=== PATIENT | female | born 2000 | race Caucasian/White ===

== ENCOUNTER 2023-01-08 11:54 | Emergency (ER) | payer OTHER, MEDICAID, SELFPAY ==
[2023-01-08 12:00] VITALS: BP 117/66; PULSE 71; RESP 16; TEMP 36.3; O2SAT 100; BMI 23.3
[2023-01-08 13:10] LABS: Bilirubin Urine NEGATIVE (NEGATIVE); Blood Urine TRACE-I (NEGATIVE); Clarity Urine CLEAR (CLEAR); Color Urine YELLOW (YELLOW); Glucose Urine UA NEGATIVE (NEGATIVE); Ketones Urine TRACE mg/dL (NEGATIVE); Leukocyte Esterase Urine TRACE (NEGATIVE); Nitrite Urine NEGATIVE (NEGATIVE); Protein Urine NEGATIVE (NEG/TRACE); Specific Gravity Urine >=1.030 (1.005-1.025); Urobilinogen Urine 0.2 EU/dL (0.2-1.0)
[2023-01-08 13:11] LABS: HCG Qualitative Urine* NEGATIVE (NEGATIVE)
[2023-01-08 13:12] LABS: Urine Microscopic Indicated YES
[2023-01-08 13:18] LABS: Bacteria Urine SMALL #/HPF (NONE SEEN); Cast Seen? NONE SEEN #/LPF (NONE SEEN); Crystals Seen? None Seen #/HPF (None Seen); Mucus Urine TRACE (NONE SEEN); Squamous Epithelial Cell Urine MANY #/LPF (NONE/RARE); Urine Culture Indicated YES
--- NOTE | 2023-01-08 13:40 | XR_ITS ---
The [address] [address] Patient Name: CHASE CLINTON MRN: [id number] date: 2000 Sex: F Assigned Patient Location: ER Current Patient Location: ER Accession/Order Number: [id number] Exam Date: 01/08/2023 13:30 Report Date: 01/08/2023 14:02 At the request of: ALLISON HART Procedure: XR abdomen min 2V EXAMINATION: XR abdomen min 2V HISTORY: Abdominal pain , nausea and vomiting COMPARISON: No relevant comparison available. FINDINGS: BOWEL GAS PATTERN: No abnormal dilation or deviation. A few small fluid levels within ascending colon; nonspecific. CALCIFICATIONS: None significant. OTHER: Negative. No abnormal gaseous collections. XR/XR abdomen min 2V IMPRESSION: 1. No obstruction or ileus. Mild enteritis cannot be excluded. Electronically authenticated by: KRUPA BURNETTE Date: 01/08/2023 14:02
[2023-01-08 14:25] LABS: Basophils Percent Auto 0.4 % (0.2-2.0); Eosinophils Percent Auto 0.4 % (0.9-7.0); Hematocrit 37.9 % (36.0-48.0); Hemoglobin 11.5 g/dL (12.0-16.0); Immature Granulocytes Abs Auto 0.01 10^3/uL (0.00-0.03); Immature Granulocytes Pct Auto 0.2 % (0.0-0.5); Lymphocytes Absolute Auto 1.4 10^3/uL (1.2-3.8); Lymphocytes Percent Auto 27.5 % (20.5-60.0); Mean Corpuscular HGB Conc 30.3 g/dL (29.9-35.2); Mean Corpuscular Hemoglobin 23.7 pg (26.7-34.0); Mean Corpuscular Volume 78.1 fL (81.0-99.0); Mean Platelet Volume 10.6 fL (9.5-13.5); Monocytes Absolute Auto 0.3 10^3/uL (0.3-0.8); Monocytes Percent Auto 5.9 % (1.7-12.0); Neutrophils Absolute Auto 3.4 10^3/uL (1.4-6.5); Neutrophils Percent Auto 65.6 % (43.0-75.0); Platelet Count 254 10^3/uL (150-450); Red Blood Count 4.85 10^6/uL (4.20-5.40); Red Cell Distribution Width 15.1 % (11.0-15.0); White Blood Count 5.2 10^3/uL (4.0-11.0)
[2023-01-08 14:27] LABS: Alanine Aminotransferase 18 U/L (14-59); Albumin Globulin Ratio 1.1; Albumin Level 3.9 g/dL (3.4-5.0); Alkaline Phosphatase 61 U/L (46-116); Anion Gap 12.8; Aspartate Amino Transferase 10 U/L (15-37); BUN Creatinine Ratio 14.3; Bilirubin Total 0.4 mg/dL (0.2-1.0); Calcium 8.9 mg/dL (8.5-10.1); Carbon Dioxide 27.8 mmol/L (21.0-32.0); Chloride 104 mmol/L (98-107); Estimated GFR (African America >60 (>=60); Estimated GFR (Non-African Ame >60 (>=60); Globulin 3.4 g/dL; Glucose 74 mg/dL (74-106); Potassium 3.6 mmol/L (3.5-5.1); Sodium 141 mmol/L (136-145); Total Protein 7.3 g/dL (6.4-8.2)
--- NOTE | 2023-01-08 14:58 | ED_ITS ---
HPI - Abdominal Pain General Chief Complaint: Abdominal Pain Stated Complaint: ABDOMINAL PAIN Time Seen by Provider: 01/08/23 13:18 Source: patient Mode of arrival: walk-in Limitations: no limitations History of Present Illness HPI narrative: Patient is a 22-year-old female presents to the emergency department for multiple complaints over the last 3 days. She states she has had diffuse abdominal pain after eating for the last 3 days associated with occasional vomiting. She vomited at work which prompted her to come to the ER today. She has had no fevers or upper respiratory symptoms. She states she has also had burning with urination and urinary frequency. She has not noted any vaginal discharge or hematuria. No flank or back pain. She takes control, no concern for . No diarrhea. Related Data Previous Rx's Medication Instructions Recorded cephalexin 500 mg capsule 500 mg PO Q8H 5 days #15 caps 01/08/23 hyoscyamine sulfate 0.125 mg 0.125 mg PO Q6H PRN abdominal pain 01/08/23 tablet (Levsin) #12 tabs ondansetron 4 mg disintegrating 4 mg PO Q6H PRN nausea and 01/08/23 tablet vomiting #12 tabs Allergies Allergy/AdvReac Type Severity Reaction Status Date / Time No Known Drug Allergies Allergy Verified 01/08/23 12:04 Review of Systems ROS Constitutional Denies: fever or chills Ears, nose, mouth, and throat Denies: throat pain Cardiovascular Denies: chest pain Respiratory Denies: shortness of breath Gastrointestinal Reports: abdominal pain, nausea and vomiting; Denies: diarrhea Genitourinary Reports: painful urination and urinary frequency Musculoskeletal Denies: back pain Integumentary/Breast Denies: rash Endocrine Denies: excessive urination PFSH PFS Social History Smoking status: Current every day smoker Exam Narrative Exam Narrative: Gen.: Awake, alert, in no distress Head: Normocephalic, atraumatic ENT: Moist mucous membranes Respiratory: No respiratory distress, lungs clear bilaterally Cardio: Regular rate and rhythm Gastrointestinal: Abdomen is soft, nondistended and nontender to palpation; no guarding or rebound Extremities: Moves extremities equally Psych: Normal mood and affect Neuro: No focal neuro deficit Skin: Warm, dry, intact Constitutional Vital Signs, click to edit/add: Last Vital Signs Temp 97.4 F L 01/08/23 12:00 Pulse 71 01/08/23 12:00 Resp 16 01/08/23 12:00 BP 117/66 01/08/23 12:00 Pulse Ox 100 01/08/23 12:00 O2 Del Method Room Air 01/08/23 12:00 Course Vital Signs Vital signs: Vital Signs Temperature 97.4 F L 01/08/23 12:00 Pulse Rate 71 01/08/23 12:00 Respiratory Rate 16 01/08/23 12:00 Blood Pressure 117/66 01/08/23 12:00 Pulse Oximetry 100 01/08/23 12:00 Oxygen Delivery Method Room Air 01/08/23 12:00 Temperature 97.4 F L 01/08/23 12:00 Pulse Rate 71 01/08/23 12:00 Respiratory Rate 16 01/08/23 12:00 Blood Pressure 117/66 01/08/23 12:00 Pulse Oximetry 100 01/08/23 12:00 Oxygen Delivery Method Room Air 01/08/23 12:00 MDM - Abdominal Pain MDM Narrative Medical decision making narrative: Lab studies and abdominal x-rays were obtained from the lobby, patient is found to have a mild UTI although contaminated. She will be treated with Keflex for 5 days. I asked the patient if she had any concern for STD exposure and she stated she was not sure so we will add a urine GC/chlamydia and contact with positive results for treatment. She will be given Levsin and Zofran for abdominal pain and nausea, her lab studies are unremarkable with no evidence of acute biliary or hepatic issues. Abdominal x-rays were unremarkable. Abdomen is soft and benign on recheck by attending physician and the patient is discharged home with Keflex, Levsin and Zofran, work note provided. Follow-up PCP and return to the ER if symptoms change or worsen. Medical Records Attestation: I reviewed the patient's medical records. Lab Data Attestation: I reviewed the patient's lab results. Labs: Lab Results 01/08/23 01/08/23 Range/Units 12:30 13:56 WBC 5.2 (4.0-11.0) 10^3/uL RBC 4.85 (4.20-5.40) 10^6/uL Hgb 11.5 L (12.0-16.0) g/dL Hct 37.9 (36.0-48.0) % MCV 78.1 L (81.0-99.0) fL MCH 23.7 L (26.7-34.0) pg MCHC 30.3 (29.9-35.2) g/dL RDW 15.1 H (11.0-15.0) % Plt Count 254 (150-450) 10^3/uL MPV 10.6 (9.5-13.5) fL Neut % (Auto) 65.6 (43.0-75.0) % Lymph % (Auto) 27.5 (20.5-60.0) % [place] % (Auto) 5.9 (1.7-12.0) % Eos % (Auto) 0.4 L (0.9-7.0) % Baso % (Auto) 0.4 (0.2-2.0) % Neut # (Auto) 3.4 (1.4-6.5) 10^3/uL Lymph # (Auto) 1.4 (1.2-3.8) 10^3/uL [place] # (Auto) 0.3 (0.3-0.8) 10^3/uL Eos # (Auto) 0.0 (0.0-0.7) 10^3/uL Baso # (Auto) 0.0 (0.0-0.1) 10^3/uL Abs Immat Gran (auto) 0.01 (0.00-0.03) 10^3/uL Imm/Tot Granulo (auto) 0.2 (0.0-0.5) % Sodium 141 (136-145) mmol/L Potassium 3.6 (3.5-5.1) mmol/L Chloride 104 (98-107) mmol/L Carbon Dioxide 27.8 (21.0-32.0) mmol/L Anion Gap 12.8 BUN 11.0 (7.0-18.0) mg/dL Creatinine 0.77 (0.55-1.02) mg/dL Est GFR ( Amer) >60 (>=60) Est GFR (Non-Af Amer) >60 (>=60) BUN/Creatinine Ratio 14.3 Glucose 74 (74-106) mg/dL Calcium 8.9 (8.5-10.1) mg/dL Total Bilirubin 0.4 (0.2-1.0) mg/dL AST 10 L (15-37) U/L ALT 18 (14-59) U/L Alkaline Phosphatase 61 (46-116) U/L Total Protein 7.3 (6.4-8.2) g/dL Albumin 3.9 (3.4-5.0) g/dL Globulin 3.4 g/dL Albumin/Globulin Ratio 1.1 Lipase 22.0 (16.0-77.0) U/L Urine Color Yellow (YELLOW) Urine Clarity Clear (CLEAR) Urine pH 6.0 (5.0-9.0) Ur Specific [place] >=1.030 A (1.005-1.025) Urine Protein Negative (NEG/TRACE) mg/dL Urine Glucose (UA) Negative (NEGATIVE) mg/dL Urine Ketones Trace A (NEGATIVE) mg/dL Urine Occult Blood Trace-i (NEGATIVE) Urine Nitrite Negative (NEGATIVE) Urine Bilirubin Negative (NEGATIVE) Urine Urobilinogen 0.2 (0.2-1.0) EU/dL Ur Leukocyte Esterase Trace A (NEGATIVE) Urine RBC 2-5 A (0-2) #/HPF Urine WBC 5-10 A (NONE SEEN) #/HPF Ur Squamous Epith Cells Many A (NONE/RARE) #/LPF Urine Crystals None seen (None Seen) #/HPF Urine Bacteria Small A (NONE SEEN) #/HPF Urine Casts None seen (NONE SEEN) #/LPF Urine Mucus Trace A (NONE SEEN) Ur Culture Indicated? Yes Urine HCG, Qual Negative (NEGATIVE) Imaging Data Abdominal x-ray: Attestation: I have reviewed the pertinent imaging results. Discharge Plan Discharge Chief Complaint: Abdominal Pain Clinical Impression: UTI (urinary tract infection), Nausea & vomiting, Abdominal pain Patient Disposition: Home, Self-Care Time of Disposition Decision: 14:55 Condition: Good Prescriptions / Home Meds: New hyoscyamine sulfate [Levsin] 0.125 mg tablet 0.125 mg PO Q6H PRN (Reason: abdominal pain) Qty: 12 0RF ondansetron 4 mg tablet,disintegrating 4 mg PO Q6H PRN (Reason: nausea and vomiting) Qty: 12 0RF cephalexin 500 mg capsule 500 mg PO Q8H 5 Days Qty: 15 0RF Instructions: Urinary Tract Infection in Women (ED), Acute Nausea and Vomiting (ED), Acute Abdominal Pain (ED) Stand Alone Forms: Portal Instructions Referrals: SHAWN HAYWOOD [Primary Care Provider] - 1 week
[2023-01-08] MEDS: ONDANSETRON 4 MG RAPDIS TABLET SL (15:02)
[2023-01-08] MEDS: HYOSCYAMINE SULFATE 0.125 MG TAB.SUBL SL (15:02)
[2023-01-10 03:08] LABS: Neisseria gonorrhoeae, NAA Negative (Negative)
== END 2023-01-08 15:04 | disposition home or self-care (01) ==
PROVIDERS: Physician Assistant; Emergency Provider Emergency Medicine; PCP Family Medicine
DX: N39.0 Urinary tract infection, site not specified (principal); R11.2 Nausea with vomiting, unspecified; R10.9 Unspecified abdominal pain; F17.210 Nicotine dependence, cigarettes, uncomplicated
CPT/HCPCS: 36415; 74019; 80053; 81001; 83690; 84703; 85025; 87086; 87150; 87186; 87491; 87591; 99285

== ENCOUNTER 2023-08-09 12:53 | Emergency (ER) | payer MEDICAID, SELFPAY ==
[2023-08-09 12:58] VITALS: BP 128/83; PULSE 88; TEMP 37; O2SAT 100; BMI 27.5
[2023-08-09 13:41] LABS: Bilirubin Urine NEGATIVE (NEGATIVE); Blood Urine NEGATIVE (NEGATIVE); Clarity Urine CLEAR (CLEAR); Color Urine YELLOW (YELLOW); Glucose Urine UA NEGATIVE (NEGATIVE); Ketones Urine NEGATIVE (NEGATIVE); Leukocyte Esterase Urine NEGATIVE (NEGATIVE); Nitrite Urine NEGATIVE (NEGATIVE); Protein Urine TRACE mg/dL (NEG/TRACE); Urobilinogen Urine 0.2 EU/dL (0.2-1.0); pH Urine >=9.0 (5.0-9.0)
[2023-08-09 13:47] LABS: Urine Microscopic Indicated NO
--- NOTE | 2023-08-09 14:03 | ED.ABDPAIN1 ---
HPI - Abdominal Pain General Chief Complaint: Abdominal Pain Stated Complaint: ABDOMINAL PAIN Time Seen by Provider: 08/09/23 13:44 Source: patient History of Present Illness HPI narrative: Patient is a 23-year-old female who presents to the emergency department for evaluation of pelvic pain that began today associated with thick vaginal discharge that has been present for several weeks. She was seen at urgent care 5 days ago, she had a pelvic exam with cultures performed and she states she was told they were negative. She is concerned for STD and she is concerned for . She has continued to have unprotected sex throughout the week despite her thick vaginal discharge and discomfort. She was given Diflucan that she took 2 doses of 3 days apart. She has also been using MetroGel vaginally and states she just finished her last dose of that and she is still having symptoms. She has had no fevers. She did have an episode of emesis this morning but has not had any significant emesis or diarrhea. Related Data Previous Rx's ?Medication ?Instructions ?Recorded doxycycline hyclate 100 mg tablet 100 mg PO BID 7 days #14 tabs 08/09/23 fluconazole 100 mg tablet 100 mg PO DAILY #5 tabs 08/09/23 (Diflucan) metronidazole 500 mg tablet 500 mg PO Q12H 7 days #14 tabs 08/09/23 ondansetron 4 mg disintegrating 4 mg PO Q6H PRN nausea and 08/09/23 tablet vomiting #12 tabs Allergies Allergy/AdvReac Type Severity Reaction Status Date / Time No Known Drug Allergies Allergy Verified 08/09/23 13:03 Review of Systems ROS Constitutional Denies: fever or chills Ears, nose, mouth, and throat Denies: throat pain or nasal congestion Cardiovascular Denies: chest pain Respiratory Denies: shortness of breath or cough Gastrointestinal Reports: abdominal pain, nausea and vomiting; Denies: diarrhea Genitourinary Denies: painful urination Musculoskeletal Denies: back pain Integumentary/Breast Denies: rash Neurological Denies: headache Hematologic/Lymphatic Denies: easy bruising or easy bleeding PFSH PFSH Social History Smoking status: Current every day smoker Exam Narrative Exam Narrative: Gen.: Awake, alert, in no distress Head: Normocephalic, atraumatic ENT: Moist mucous membranes Respiratory: No respiratory distress Gastrointestinal: Mild suprapubic pain, no pain out of proportion on exam. Extremities: Moves extremities equally Psych: Normal mood and affect Neuro: No focal neuro deficit Skin: Warm, dry, intact Constitutional Vital Signs, click to edit/add: Last Vital Signs Temp 98.6 F 08/09/23 12:58 Pulse 78 08/09/23 14:57 Resp 16 08/09/23 14:57 BP 104/72 08/09/23 14:57 Pulse Ox 100 08/09/23 14:57 O2 Del Method Room Air 08/09/23 14:57 Course Vital Signs Vital signs: Vital Signs Temperature 98.6 F 08/09/23 12:58 Pulse Rate 88 08/09/23 12:58 Respiratory Rate 16 08/09/23 12:58 Blood Pressure 128/83 08/09/23 12:58 Pulse Oximetry 100 08/09/23 12:58 Oxygen Delivery Method Room Air 08/09/23 12:58 Temperature 98.6 F 08/09/23 12:58 Pulse Rate 78 08/09/23 14:57 Respiratory Rate 16 08/09/23 14:57 Blood Pressure 104/72 08/09/23 14:57 Pulse Oximetry 100 08/09/23 14:57 Oxygen Delivery Method Room Air 08/09/23 14:57 MDM - Abdominal Pain MDM Narrative Medical decision making narrative: Patient has already had a pelvic exam this week with pelvic cultures performed that she states were negative per urgent care. She is still concerned for STDs that she continues to have thick vaginal discharge. She was strongly encouraged not to continue to have unprotected sex while she has been treated for cervicitis. test and urine specimen are negative, lab studies are unremarkable and pelvic ultrasound with no evidence of acute abnormalities. Patient treated for cervicitis with Rocephin in the ER, doxycycline, Flagyl and Diflucan for home. 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 Return to the ER if symptoms change or worsen. SUPERVISED APC VISIT, PHYSICIAN ATTESTATION: Based on the medical record the care appears appropriate. ? Medical Records Attestation: I reviewed the patient's medical records. Lab Data Attestation: I reviewed the patient's lab results. Labs: Lab Results 06/28/24 06/28/24 Range/Units 13:16 14:10 WBC 8.6 (4.0-11.0) 10^3/uL RBC 4.75 (4.20-5.40) 10^6/uL Hgb 10.3 L (12.0-16.0) g/dL Hct 35.2 L (36.0-48.0) % MCV 74.1 L (81.0-99.0) fL MCH 21.7 L (26.7-34.0) pg MCHC 29.3 L (29.9-35.2) g/dL RDW 16.2 H (11.0-15.0) % Plt Count 310 (150-450) 10^3/uL MPV 9.3 L (9.5-13.5) fL Neut % (Auto) 66.5 (43.0-75.0) % Lymph % (Auto) 27.3 (20.5-60.0) % [place] % (Auto) 4.9 (1.7-12.0) % Eos % (Auto) 0.4 L (0.9-7.0) % Baso % (Auto) 0.7 (0.2-2.0) % Neut # (Auto) 5.7 (1.4-6.5) 10^3/uL Lymph # (Auto) 2.3 (1.2-3.8) 10^3/uL [place] # (Auto) 0.4 (0.3-0.8) 10^3/uL Eos # (Auto) 0.0 (0.0-0.7) 10^3/uL Baso # (Auto) 0.1 (0.0-0.1) 10^3/uL Abs Immat Gran (auto) 0.02 (0.00-0.03) 10^3/uL Imm/Tot Granulo (auto) 0.2 (0.0-0.5) % Sodium 140 (136-145) mmol/L Potassium 4.2 (3.5-5.1) mmol/L Chloride 103 (98-107) mmol/L Carbon Dioxide 28.0 (21.0-32.0) mmol/L Anion Gap 13.2 BUN 10.0 (7.0-18.0) mg/dL Creatinine 0.92 (0.55-1.02) mg/dL Est GFR ( Amer) >60 (>=60) Est GFR (Non-Af Amer) >60 (>=60) BUN/Creatinine Ratio 10.9 Glucose 91 (74-106) mg/dL Calcium 8.5 (8.5-10.1) mg/dL Urine Color Yellow (YELLOW) Urine Clarity Clear (CLEAR) Urine pH >=9.0 A (5.0-9.0) Ur Specific [place] 1.010 (1.005-1.025) Urine Protein Trace (NEG/TRACE) mg/dL Urine Glucose (UA) Negative (NEGATIVE) mg/dL Urine Ketones Negative (NEGATIVE) mg/dL Urine Occult Blood Negative (NEGATIVE) Urine Nitrite Negative (NEGATIVE) Urine Bilirubin Negative (NEGATIVE) Urine Urobilinogen 0.2 (0.2-1.0) EU/dL Ur Leukocyte Esterase Negative (NEGATIVE) Urine RBC Cancelled Urine WBC Cancelled Ur Squamous Epith Cells Cancelled Ur Transition Epith Cell Cancelled Ur Renal Epithelial Cell Cancelled Urine Crystals Cancelled Calcium Carbonate Cryst Cancelled Calcium Phosphate Cryst Cancelled Calcium Oxalate Crystal Cancelled Cystine Crystals Cancelled Uric Acid Crystals Cancelled Triple Phos Crystals Cancelled Tyrosine Crystals Cancelled Amorphous Sediment Cancelled Urine Bacteria Cancelled Urine Casts Cancelled Fatty Casts Cancelled Hyaline Casts Cancelled Fine Granular Casts Cancelled Coarse Granular Casts Cancelled Waxy Casts Cancelled RBC Casts Cancelled WBC Casts Cancelled Urine Starch Cancelled Urine Mucus Cancelled Urine Trichomonas Cancelled Urine Yeast Cancelled Urine Sperm Cancelled Ur Oval Fat Bodies Cancelled Ur Culture Indicated? Cancelled Urine HCG, Qual Negative (NEGATIVE) Imaging Data US - abdomen: Attestation: I have reviewed the pertinent imaging results. Radiologist's impression: ITS Impressions Transvaginal US 08/09/23 14:26 IMPRESSION: No abnormality identified Electronically authenticated by: TAMMY LOCKWOOD Date: 08/09/2023 15:31 Discharge Plan Discharge Stand Alone Forms: Portal Instructions Chief Complaint: Abdominal Pain Clinical Impression: Cervicitis, Abdominal pain Patient Disposition: Home, Self-Care Time of Disposition Decision: 15:47 Condition: Good Mode of Transportation: Private Vehicle Prescriptions / Home Meds: New metronidazole 500 mg tablet 500 mg PO Q12H 7 Days Qty: 14 0RF ondansetron 4 mg tablet,disintegrating 4 mg PO Q6H PRN (Reason: nausea and vomiting) Qty: 12 0RF doxycycline hyclate 100 mg tablet 100 mg PO BID 7 Days Qty: 14 0RF fluconazole [Diflucan] 100 mg tablet 100 mg PO DAILY Qty: 5 0RF Print Language: [place] Instructions: Cervicitis (ED) Additional Instructions: Please follow up with your bow repairer custom Referrals: SHAWN HAYWOOD [Primary Care Provider] - 1 week Discharge Date/Time: 08/09/23 16:05
[2023-08-09 14:11] LABS: HCG Qualitative Urine* NEGATIVE (NEGATIVE); Internal Control Within Normal Limits
[2023-08-09 14:19] LABS: Basophils Absolute Auto 0.1 10^3/uL (0.0-0.1); Basophils Percent Auto 0.7 % (0.2-2.0); Eosinophils Percent Auto 0.4 % (0.9-7.0); Hematocrit 35.2 % (36.0-48.0); Hemoglobin 10.3 g/dL (12.0-16.0); Immature Granulocytes Abs Auto 0.02 10^3/uL (0.00-0.03); Immature Granulocytes Pct Auto 0.2 % (0.0-0.5); Lymphocytes Absolute Auto 2.3 10^3/uL (1.2-3.8); Lymphocytes Percent Auto 27.3 % (20.5-60.0); Mean Corpuscular HGB Conc 29.3 g/dL (29.9-35.2); Mean Corpuscular Hemoglobin 21.7 pg (26.7-34.0); Mean Corpuscular Volume 74.1 fL (81.0-99.0); Mean Platelet Volume 9.3 fL (9.5-13.5); Monocytes Absolute Auto 0.4 10^3/uL (0.3-0.8); Monocytes Percent Auto 4.9 % (1.7-12.0); Neutrophils Absolute Auto 5.7 10^3/uL (1.4-6.5); Neutrophils Percent Auto 66.5 % (43.0-75.0); Platelet Count 310 10^3/uL (150-450); Red Blood Count 4.75 10^6/uL (4.20-5.40); Red Cell Distribution Width 16.2 % (11.0-15.0); White Blood Count 8.6 10^3/uL (4.0-11.0)
[2023-08-09 14:25] LABS: Anion Gap 13.2; BUN Creatinine Ratio 10.9; Calcium 8.5 mg/dL (8.5-10.1); Chloride 103 mmol/L (98-107); Estimated GFR (African America >60 (>=60); Estimated GFR (Non-African Ame >60 (>=60); Glucose 91 mg/dL (74-106); Potassium 4.2 mmol/L (3.5-5.1); Sodium 140 mmol/L (136-145)
--- NOTE | 2023-08-09 14:26 | US_ITS ---
The [address] [address] Patient Name: CHASE CLINTON MRN: [id number] date: 2000 Sex: F Assigned Patient Location: ER Current Patient Location: ER Accession/Order Number: [id number] Exam Date: 08/09/2023 15:00 Report Date: 08/09/2023 15:31 At the request of: ALLISON HART Procedure: US pelvis transvaginal EXAMINATION: US pelvis transvaginal HISTORY: Suprapubic pain, discharge COMPARISON: No relevant comparison available. FINDINGS: Findings the uterus is normal in size, contour and myometrial echotexture measuring 10.0 x 5.2 x 4.1 cm. Anteverted. The endometrium measures 11.7 mm, within normal limits for age The right ovary is normal measuring 2.8 x 2.1 x 1.9 cm. Normal color Doppler flow The left ovary is normal measuring 2.4 x 2.1 x 1.6 cm. Normal color Doppler flow No free fluid US/US pelvis transvaginal IMPRESSION: No abnormality identified Electronically authenticated by: TAMMY LOCKWOOD Date: 08/09/2023 15:31
[2023-08-09] MEDS: KETOROLAC TROMETHAMINE 10 MG TABLET PO (14:43)
[2023-08-09] MEDS: ONDANSETRON 4 MG RAPDIS TABLET SL (14:43)
[2023-08-09] MEDS: WATER FOR INJECTION STERILE IM (14:50)
[2023-08-09] MEDS: CEFTRIAXONE 1000 MG IM (14:50)
[2023-08-09 14:57] VITALS: BP 104/72; PULSE 78; O2SAT 100
== END 2023-08-09 16:05 | disposition home or self-care (01) ==
PROVIDERS: Physician Assistant; Emergency Provider Emergency Medicine; PCP Family Medicine
DX: R10.9 Unspecified abdominal pain (principal); N72 Inflammatory disease of cervix uteri; F17.200 Nicotine dependence, unspecified, uncomplicated
CPT/HCPCS: 36415; 76830; 80048; 81001; 81003; 84703; 85025; 99284; J0696; Q0162

== ENCOUNTER 2024-01-16 19:02 | Emergency (ER) | payer MEDICAID, SELFPAY ==
[2024-01-16 19:13] VITALS: BP 102/50; PULSE 85; TEMP 36.6; O2SAT 99
--- OUTSIDE RECORDS SUMMARY | 2024-01-16 19:19 | XMS_ITS | CCD ---
Author Organization [facility] Care Team Providers [place] Bail[place] Name Role Phone Shamir Keenan Unavailable DO Michael Haywood Primary Care Provider [phone] DO Uriel Kim Attending Provider DO Agatha Stafford Attending Provider NO FAMILY, PHYSICIAN Primary Care Provider Unava MD Nany Kessler Attending Provider [phone] MD Nany Morton Admit Provider [phone] Stacy Hardy Unavailable STEW, DR ZANDRA Jeffrey Attending Unavailabl e DANIELCHDIONICIO ., MARCIA COOPER Consulting Unavailabl e DENVER, DR ESCOBAR Primary Care Unavailable STEW, DR ZANDRA Jeffrey Admitting Unavailabl e DENVER, DR ESCOBAR Primary Care Unavailable DENVER, DR ESCOBAR Admitting Unavailable DENVER, DR ESCOBAR Attending Unavailable DENVER, DR ESCOBAR Consulting Unavailable JULIUSEBER, DR KRUPA Agustin Consulting Unavailable KELSEY ., DR FRENCH Consulting Unavailable KELSEY ., DR FRENCH Admitting Unavailable HOUSE, DR ESCOBAR Primary Care Unavailable KELSEY ., DR FRENCH Attending Unavailable KARASIK ., DR ZAMUDIO Consulting Unavailabl e [facility] [place] NAVA Admitting Unavailable HOUSE, DR ESCOBAR Primary Care Unavailable [facility] [place] DR NAVA Attending Unavailable YOBANY, MICHAEL Rendon Primary Care Physician AGATHA STAFFORD Attending Unavailable AGATHA STAFFORD Attending Unavailable AGATHA STAFFORD Attending Unavailable AGATHA STAFFORD Attending Unavailable RE Jaramillo Attending Provider [phone] Maria De Jesus Jaramillo Attending Unavailable Maria De Jesus Jaramillo Admitting Unavailable DO Agatha Stafford. Referring DO Agatha Rebollar Attending DO Agatha Rebollar Admitting UnavailDO MICHAEL Sanchez Attending Unavailable MICHAEL HAYWOOD Primary Care Unavailable MICHAEL HAYWOOD Primary Care Unavailable Claudia MAYO, Jimmy Jeffrey Attending Unavailable MICHAEL HAYWOOD Primary Care Unavailable Jimmy Taylor MD Attending Unavailable MICHAEL HAYWOOD Primary Care Unavailable DO MICHAEL HAYWOOD Attending Unavailable Michael Haywood MD Primary Care Provider Unavailable Unavailable Unavailable Allergies Allergy Classification Reported Allergen(s) Allergy Type Date of Onset Reaction(s) Facility (3 sources) Sunscreens Drug allergy Unknown [employer] Other Medications Current Medications Medication Drug Class(es) Dates Sig (Normalized) Sig (Original) cariprazine 1.5 mg oral capsule (1 source) Atypical Antipsychotic Start: 04-04-2023 take 1 capsule by mouth once daily Vraylar 1.5 mg oral capsule 1.5 mg = 1 cap(s), Oral, Daily, Refills(s) 0, Depression Start Date: 04/04/23 Status: Ordered cephalexin 500 mg oral capsule (8 sources) Cephalosporin Antibacterial Start: 07-27-2023 take 500 mg by mouth three times daily Cephalexin Active 500 MG PO Three times daily 31 08July 27, 2023 12:00am Start: 03-28-2022 take 1 capsule by mo uth every six hours Cephalexin 500 MG 1 capsule Orally Four times a day for 10 day(s) Mar, Active Start: 09-15-2021 End: 09-21-2021 take 500 mg by mouth every six hours Cephalexin Discontinued 500 MG PO Q6H 28 September 15, 2021 12:00am September 21, 2021 11:37am Ethinyl Estradiol / norgestimate (3 sources) Progestin, Estrogen Start: 04-04-2023 take 1 tablet by mouth once daily ethinyl estradiol-norgestimate 35 mcg-0.25 mg Tab 1 tab(s), Oral, Daily, Refill(s) 0, control/menstrual regulation Start Date: 04/04/23 Status: Ordered Start: 02-14-2023 End: 01-15-2024 take 1 tablet by mouth in the morning norgestimate-ethinyl estradiol (Sprintec 28) 0.25-35 MG-MCG tablet Indications: Irregular periods , Surveillance for control, oral contraceptives Take 1 tablet by mouth in the morning. 28 tablet 02/14/2023 01/15/2024 Discontinued fluticasone propionate 0.05 mg/actuat metered dose nasal spray (1 source) Corticosteroid Start: 01-14-2021 take 1 spray(s) nasal route twice daily Fluticasone Propionate 50 MCG/ACT 1 spray in each nostril Nasally Twice a day for 14 days Jan, Active Completed/Discontinued Medications Medication Drug Class(es) Dates Sig (Normalized) Sig (Original) docusate sodium 100 mg oral capsule (12 sources) Start: 09-24-2021 End: 07-27-2023 take 100 mg by mouth at bedtime Docusate Sodium Discontinued 100 MG PO Bedtime September 24, 2021 12:00am July 27, 2023 12:29pm Start: 09-24-2021 take 100 mg by mouth at bedtim e Docusate Sodium Active 100 MG PO Bedtime September 24, 2021 12:00am Start: 09-24-2021 take 100 mg by mouth at bedtim e Docusate Sodium Active 100 MG PO Bedtime September 24, 2021 12:00am Start: 09-24-2021 take 100 mg by mouth at bedtim e Docusate Sodium Active 100 MG PO Bedtime September 24, 2021 12:00am Start: 06-03-2020 End: 04-15-2021 take 1 capsule by mouth once daily Docusate Sodium (Colace Clear) 50 mg capsule Discontinued 50 MG PO Daily June 03, 2020 12:00am April 15, 2021 11:25am ferrous sulfate 324 mg delayed release oral tablet (18 sources) Start: 09-24-2021 End: 07-27-2023 take 324 mg by mouth twice daily Ferrous Sulfate Discontinued 324 MG PO Twice daily September 24, 2021 12:00am July 27, 2023 12:29pm Start: 09-24-2021 take 324 mg by mouth twice daily Ferrous Sulfate Active 324 MG PO Twice daily September 24, 2021 12:00am Start: 09-24-2021 take 324 mg by mouth twice daily Ferrous Sulfate Active 324 MG PO Twice daily 60 September 24, 2021 12:00am Start: 09-24-2021 take 324 mg by mouth twice daily Ferrous Sulfate Active 324 MG PO Twice daily 60 September 24, 2021 12:00am Start: 07-18-2021 End: 07-27-2023 take 325 mg by mouth twice daily Ferrous Sulfate Discontinued 325 MG PO Twice daily July 18, 2021 12:00am July 27, 2023 12:29pm Start: 05-16-2020 End: 04-15-2021 take 1 tablet by mouth once daily Ferrous Sulfate (Iron (Ferrous Sulfate)) 325 mg (65 mg iron) Tablet Discontinued 353 MG PO Daily May 16, 2020 12:00am April 15, 2021 11:25am ibuprofen 600 mg oral tablet (20 sources) Nonsteroidal Anti-inflammatory Drug Start: 09-24-2021 End: 07-27-2023 take 600 mg by mouth every six hours Ibuprofen Discontinued 600 MG PO Q6H 60 September 24, 2021 12:00am July 27, 2023 12:29pm Start: 09-24-2021 take 600 mg by mouth every six hours Ibuprofen Active 600 MG PO Q6H 60 September 24, 2021 12:00am Start: 09-24-2021 take 600 mg by mouth every six hours Ibuprofen Active 600 MG PO Q6H 60 September 24, 2021 12:00am Start: 09-24-2021 take 600 mg by mouth every six hours Ibuprofen Active 600 MG PO Q6H 60 September 24, 2021 12:00am Start: 06-03-2020 End: 04-15-2021 take 800 mg by mouth three to four times daily Ibuprofen Discontinued 800 MG PO 3 to 4 times per day June 03, 2020 12:00am April 15, 2021 11:25am Start: 12-20-2018 End: 05-16-2020 take 600 mg by mouth every six hours Ibuprofen Discontinued 600 MG PO Q6H December 20, 2018 1:00am May 16, 2020 10:14pm ondansetron 4 mg oral tablet (6 sources) Serotonin-3 Receptor Antagonist Start: 05-16-2020 End: 07-27-2023 take 1 tablet by mouth every six hours Ondansetron Hcl (Zofran) 4 mg Tablet Discontinued 4 MG PO Q6H May 16, 2020 12:00am July 27, 2023 12:29pm predniSONE 20 mg oral tablet (2 sources) Start: 11-11-2021 take 1 tablet by mouth every twelve hours predniSONE 20 MG 1 tablet Orally 2 times a day for 5 day(s) Nov, Not-Taking Kqyamqrk-Xux-Rt-Fa (6 sources) Start: 05-16-2020 End: 07-27-2023 take 1 tablet by mouth once daily Kxttatrs-Vbn-Yx-Fa Discontinued 1 TAB PO Daily May 16, 2020 12:00am July 27, 2023 12:28pm Start: 05-16-2020 take 1 tablet by marvin th once daily Yzvgmrac-Rwt-Xr-Fa Active 1 TAB PO Daily May 16, 2020 12:00am triamcinolone acetonide 40 mg/ml injectable suspension (2 sources) Corticosteroid Start: 11-11-2021 Kenalog-40 Nov, 40 mg Problems Active Problems Problem Classification Problem Date Documented Da te Episodic/Chronic Abdominal pain (10 sources) Abdominal pain; Translations: [Unspecified abdominal pain] Onset: 08-23-2021 04-15-2021 Episodic Immunizations and screening for infectious disease (4 sources) Contact with and (suspected) exposure to other viral communicable diseases; Translations: [Contact with and (suspected) exposure to other viral communicable diseases] Onset: 01-14-2021 Resolved: 01-14-2021 Episodic Menstrual disorders (5 sources) Irregular periods; Translations: [Irregular menstruation, unspecified] Onset: 04-03-2023 Chronic Mood disorders (1 source) Bipolar disorder 04-04-2023 Chronic Other female genital disorders (1 source) Postcoital bleeding; Translations: [Postcoital and contact bleeding] Onset: 04-03-2023 Chronic Other female genital disorders (10 sources) History of past delivery; Translations: [Status post vaginal delivery] 09-24-2021 Episodic Other female genital disorders (1 source) Disorder of female genital organs; Translations: [Other specified conditions associated with female genital organs and menstrual cycle] Onset: 04-03-2023 Episodic Other and delivery including normal (6 sources) ; Translations: [Encounter for supervision of normal , unspecified, unspecified trimester] 04-15-2021 Episodic Other screening for suspected conditions (not mental disorders or infectious disease) (2 sources) Cancer cervix screening status; Translations: [Encounter for screening for malignant neoplasm of cervix] 01-15-2024 Episodic Other skin disorders (1 source) Folliculitis; Translations: [Follicular disorder, unspecified] 07-27-2023 Episodic Other skin disorders (1 source) Follicular disorder, unspecified; Translations: [Other specified diseases of hair and hair follicles] 07-27-2023 Episodic Other upper respiratory infections (1 source) Acute pharyngitis, unspecified Episodic Residual codes; unclassified (1 source) High risk heterosexual behavior; Translations: [High-risk sexual behavior] 07-27-2023 Episodic Screening and history of mental health and substance abuse codes (1 source) Personal history of nicotine dependence; Translations: [PERSONAL HISTORY OF NICOTINE DEPEND] Onset: 03-29-2022 Episodic Skin and subcutaneous tissue infections (5 sources) Cellulitis of left lower limb; Translations: [CELLULITIS OF LEFT LOWER LIMB] Onset: 03-28-2022 Episodic Unclassified (3 sources) LOW BACK PAIN, UNSPECIFIED; Translations: [LOW BACK PAIN, UNSPECIFIED] Onset: 05-09-2022 Past or Other Problems Problem Classification Problem Date Documented Date Episodic/Chronic Nausea and vomiting (1 source) Nausea; Translations: [NAUSEA] Onset: 08-23-2021 Episodic Other complications of (4 sources) Other specified related conditions, third trimester; Translations: [OTH SPEC PREG RELATED COND 3RD TRI] Onset: 08-19-2021 Episodic Other complications of (4 sources) Other specified related conditions, second trimester; Translations: [OTH SPEC PREG RELATED COND 2ND TRI] Onset: 2021 Episodic Other female genital disorders (1 source) Other specified noninflammatory disorders of vagina; Translations: [OTH SPEC NONINFLAMMATORY D/O VAGINA] Onset: 06-15-2021 Episodic Residual codes; unclassified (1 source) 33 weeks gestation of ; Translations: [33 WEEKS GESTATION OF ] Onset: 08-23-2021 Episodic Residual codes; unclassified (1 source) 23 weeks gestation of ; Translations: [23 WEEKS GESTATION OF ] Onset: 06-15-2021 Episodic Spondylosis; intervertebral disc disorders; other back problems (1 source) Dorsalgia, unspecified; Translations: [DORSALGIA UNSPECIFIED] Onset: 08-23-2021 Episodic Unclassified (1 source) LOW BACK PAIN, UNSPECIFIED; Translations: [LOW BACK PAIN, UNSPECIFIED] Onset: 05-07-2022 Viral infection (1 source) Viral infection, unspecified Onset: 01-14-2021 Resolved: 01-14-2021 Episodic Results Test Name Value Interpretation Reference Range Facility Consultation/Specialist Note on 08-16-2023 Consultation/Speciali st Note [id number] [facility] Outside Records [id number] [facility] [id number] 19[facility] 07-30-2023 Outside Records [id number] [facility] Vaginitis Plus (VG+)on 07-26 Atopobium Vaginae Low - 0 Normal . [facility] Comment on above: Order Comment: SOURC E OF SPECIMEN: ORANGE APTIMA Result Comment: This test was developed and its performance characteristics determined by [facility]. It has not been cleared or approved by the Food and Drug Administration. Performed By: #### V AGINITIS+ #### [facility] , BVAB2 Low - 0 Normal . The [facility] Comment on above: Order Comment: SOURC E OF SPECIMEN: ORANGE APTIMA Result Comment: This test was developed and its performance characteristics determined by [facility]. It has not been cleared or approved by the Food and Drug Administration. Performed By: #### V AGINITIS+ #### [facility] , Ashley Albicans, KADE Negative Normal Negative [facility] Comment on above: Order Comment: SOURC E OF SPECIMEN: ORANGE APTIMA Result Comment: This test was developed and its performance characteristics determined by [facility]. It has not been cleared or approved by the Food and Drug Administration. Performed By: #### V AGINITIS+ #### [facility] , Ashley Glabrata, KADE Negative Normal Negative [facility] Comment on above: Order Comment: SOURC E OF SPECIMEN: ORANGE APTIMA Result Comment: This test was developed and its performance characteristics determined by [facility]. It has not been cleared or approved by the Food and Drug Administration. PERFORMED BY: [facility] [address] [place] [address] PATHOLOGIST APPEALS WRITER ARGENTINA SANCHES M.D. Performed By: #### V AGINITIS+ #### [facility] , Chlamydia Trachomotis, KADE Negative Normal Negative [facility] Comment on above: Order Comment: SOURC E OF SPECIMEN: ORANGE APTIMA Performed By: #### V AGINITIS+ #### [facility] , Megasphaera Low - 0 Normal . [facility] Comment on above: Order Comment: SOURC E OF SPECIMEN: ORANGE APTIMA Result Comment: This test was developed and its performance characteristics determined by [facility]. It has not been cleared or approved by the Food and Drug Administration. Calculate total score by adding the 3 individual bacterial vaginosis (BV) marker scores together. Total score is interpreted as follows: Total score 0-1: Indicates the absence of BV. Total score 2: Indeterminate for BV. Additional clinical data should be evaluated to establish a diagnosis. Total score 3-6: Indicates the presence of BV. Performed By: #### V AGINITIS+ #### [facility] , Neisseria Gonorrhoeae, KADE Negative Normal Negative [facility] Comment on above: Order Comment: SOURC E OF SPECIMEN: ORANGE APTIMA Result Comment: Perf ormed at: =G - [facility] [address] [id number] [employer] Operator: Vera Walsh MD, Phone: [phone] Performed By: #### V AGINITIS+ #### [facility] , Tric Vag KADE Negative Normal Negative The [facility] Comment on above: Order Comment: SOURC E OF SPECIMEN: ORANGE APTIMA Performed By: #### V AGINITIS+ #### [facility] , Miscellaneouson 04-10-2023 Miscellaneous [id number] #1.00OTGTIFF [facility] IntraOperative Documentson 0 04-09-2023 IntraOperative Documents [id number] #1.00TIFF [facility] Postoperative Documentson Postoperative Documents [id number] #1.00TIFF [facility] Lab - Other Pathology Report on 04-08-2023 Lab - Other Pathology Report [id number] #1.00[facility] [Electronically Signed on: 04/08/2023 11:14 EST] MICHAEL HAYWOOD DO [Electronically Signed on: 04/09/2023 14:40 EST] Vianca Kebede [Verified on: 04/08/2023 11:14 EST] MICHAEL HAYWOOD DO [Transcribed on: 04/08/2023 11:03 EST] AL [facility] Main OR Intraoperative Recor don 04-08-2023 Main OR Intraoperative Record IntraOp Document Type FT Summary Primary Physician: Agatha Stafford DO Finalized Date/Time: 04/08/23 12:49:33 Pt. Name: DARSHAN CLINTON/Sex: 2000 Female Med Rec #: [id number] Physician: Agatha Stafford DO Financial #: [id number] Pt. Type: A Room/Bed: [place] [address] Admit/Disch: 04/04/23 06:05:15 - 04/04/23 11:00:00 Institution: Case Times FT Entry 1 Patient Times In Room 04/04/23 08:24:00 Out Room 04/04/23 09:14:00 Procedure Times Start 04/04/23 08:40:00 Stop 04/04/23 09:07:00 Anesthesia Times Start 04/04/23 08:24:00 Stop 04/04/23 09:14:00 Last Modified By: Valentina PAREKH, Amelia Rendon 04/04/23 09:18:36 General Comments: 04/08/23 Chart opened to review and send charges LRoth CSFA Case Attendance FT Entry 1 Entry 2 Entry 3 Case Attendee Jim Dooley CRNA, DO, Mona J. 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 LUDWIG SUPERVISING Last Modified By: Valentina PAREKH, mAelia Saeed RN, Amelia Saeed RN, Amelia Rendon 04/04/23 Imani Rendon 04/04/23 Imani Rendon 04/04/23 09:18:37 09:18:37 09:18:37 Entry 4 Case Attendee Shiela Schwartz CST Role Performed Scrub - Primary Time In 04/04/23 08:24:00 Time Out 04/04/23 09:14:00 Procedure HYSTEROSCOPY(.), DILATATION and SUCTION CURETTAGE(.) Comments Last Modified By: Valentina PAREKH, Amelia Rendon 04/04/23 09:18:37 General Comments: ANG DANGELO STUDENT SCRUBBED IN FOR CASE -V. IGLESIA SAEEDconcrete floater Protocols FT Pre-Care Text: Implements protective measures prior to operative or invasive procedure, confirms identity before the operative or invasive procedure, verifies operative procedure, surgical site, and laterality Entry 1 Procedure(s) HYSTEROSCOPY(.) Patient Identity Birthday, Blood Band, Verified (select at ID Band Check, Patient least 2): Participation Consents / H and P Anesthesia Consent, Operative Site N/A Verified HandP, Surgery/Procedure Marking Verified Consent, Transfusion Consent Surgical Site Yes Laterality Verified n/a Verified Procedure Verified Yes Correct Patient Yes Position Verified Availability Equipment, Medication Prep Dry n/a Verified (If Applicable) PreOp Antibiotic No Time Out Agatha Stafford DO, Williams CRNA, Paul A., Ferrer RN, Lana Cam CST, Kimberly A Time Out Complete 04/04/23 08:38:00 Outcomes Met? Yes Last Modified By: Amelia Saeed RN 04/04/23 08:43:21 Post-Care Text: The patient is free from signs and symptoms of injury caused by extraneous objects Allergy Information FT Pre-Care Text: Verifies allergies Entry 1 Allergies Reviewed? Yes Allergies Reviewed Self/Patient With Outcomes Met? Yes Last Modified By: Amelia Saeed RN 04/04/23 08:43:14 Post-Care Text: The patient received appropriate medication(s) safely administered during the perioperative period Surgical Procedures FT Entry 1 Entry 2 Procedure Description Procedure HYSTEROSCOPY DILATATION and SUCTION CURETTAGE Modifiers . . Surgeon Description HYSTEROSCOPY, D and C, HYSTEROSCOPY, D and C, ENDOMETRIAL MASS REMOVAL ENDOMETRIAL MASS REMOVAL Primary Procedure Yes No Primary Surgeon Agatha Stafford DO, DO, Mona J. Start 04/04/23 08:40:00 04/04/23 08:40:00 Stop 04/04/23 09:07:00 04/04/23 09:07:00 Anesthesia Type General General Surgical Service Obstetric Gynecology Obstetric Gynecology Wound Class 2 - Clean-Contaminated 2 - Clean-Contaminated Last Modified By: Vaelntina PAREKH, Amelia Saeed RN, Amelia Rendon 04/04/23 Imani Rendon 04/04/23 09:18:39 09:18:39 General Case Data FT Pre-Care Text: Classifies surgical wound, implements aseptic technique, initiates traffic control Entry 1 Case Information OR OR 6 FT Case Level Level 3 Wound Class 2 - Clean-Contaminated Specialty Obstetric Gynecology ASA Class 2 Preop Diagnosis N93.0 N92.6 N94.89 - Postop Same As Preop Yes Postcoital and contact bleeding, Irregular menstruation, unspecified, Other specified conditions associated with female genital organs and menstrual cycle Postop Diagnosis N93.0 N92.6 N94.89 - Outcomes Met? Yes Postcoital and contact bleeding, Irregular menstruation, unspecified, Other specified conditions associated with female genital organs and menstrual cycle Last Modified By: Valentina PAREKH, Amelia Rendon 04/04/23 08:51:38 Post-Care Text: The patient is free from signs and symptoms of infection Skin Assessment (Pre Procedure) FT Pre-Care Text: Implements protec (more content not included)... Normal [facility] Consent for Anesthesiaon Consent for Anesthesia [id number] #1.00TIFF [facility] Discharge Instructionson Discharge Instructions [id number] #1.00TIFF [facility] H&P Updateon 04-05-2023 H&P Update [id number] #1.00TIFF [facility] IntraOperative Documentson 0 04-05-2023 IntraOperative Documents [id number] #1.00TIFF [facility] Pre-Op Checkliston Pre-Op Checklist [id number] #1.00TIFF [facility] Progress Note-Physicianon Progress Note-Physician Patient: DARSHAN CLINTON Age: 22 years Sex: Female : 2000 Associated Diagnoses: None Author: GhafoorMD chapman Ahmad F Postoperative Information Postoperative disposition: Postoperative disposition: To PACU. Optimetrix number: Optimetrix number [id number]. Anesthetic utilized: General. Health Status Allergies: Allergic Reactions (Selected) No Known Allergies Physical Examination VS/Measurements Pain Assessment: Controlled. General: Awake, Alert, Appropriate. Respiratory: Adequate air exchange. Cardiovascular: Stable, Normal peripheral perfusion. Neurological: Normal sensory function, Normal motor function. Assessment Anesthetic outcome No anesthetic complications noted. Adequate pain relief. able to void without difficulty, able to ambulate with assist, tolerating PO intake, no N/V. Review / Management Condition: Stable. Plan Transfer/Discharge: Transfer/Discharge Discharge when meets criteria ( To home ). Normal [facility] Comment on above: Result Comment: Elec tronically Signed By: MD Ludwig Ahmad F\.br\Date and Time Signed: 04/05/23 12:17 EST Progress Note-Physician Patient: DARSHAN CLINTON Age: 22 years Sex: Female : 2000 Associated Diagnoses: None Author: MD Ludwig Ahmad F Preoperative Information Time patient last ate or drank:=== (npo 8 hours) Anesthesia history: Patient history: No prior anesthesia problems. Re-evaluation prior to induction: Completed, Initial evaluation reviewed. Review of Systems Respiratory: No shortness of breath. Cardiovascular: No chest pain. Hematology/Lymphatic s: No bruising tendency, No bleeding tendency. Health Status Allergies: Allergic Reactions (All) No Known Allergies Current medications: (Selected) Prescriptions Prescribed ibuprofen 600 mg Tab: 600 mg = 1 tab(s), Oral, q6hr, PRN Pain 1-3, # 30 tab(s), Refills(s) 1, Pharmacy: [facility] #[id number], 167, cm, 04/04/23 7:22:00 EST, Height/Length Dosing, 72.9, kg, 04/04/23 7:22:00 EST, Weight Dosing Documented Medications Documented Vraylar 1.5 mg oral capsule: 1.5 mg = 1 cap(s), Oral, Daily, Refills(s) 0, Depression ethinyl estradiol-norgestima te 35 mcg-0.25 mg Tab: 1 tab(s), Oral, Daily, Refill(s) 0, control/menstrual regulation Problem list: All Problems Chronic bipolar disorder / SNOMED CT [id number] / Confirmed Histories Past Medical History: No active or resolved past medical history items have been selected or recorded. Family History: No family history items have been selected or recorded. Procedure history: Hysteroscopy ([id number]) on 04/04/2023 at 22 Years. Tonsillectomy and adenoidectomy ([id number]). Social History Social & Psychosocial Habits Alcohol 04/04/2023 Risk Assessment: Denies Alcohol Use Substance Abuse 04/04/2023 Use: Current Type: Marijuana 04/04/2023 Risk Assessment: Low Risk Tobacco 04/04/2023 Smokeless tobacco use: Current vaping or e-cigar Type: Vaping . Physical Examination Please see preop flow sheet Airway: Mallampati classification: II (soft palate, fauces, uvula visible). Respiratory: Lungs are clear to auscultation. Cardiovascular: Normal rate, Regular rhythm. Neurologic: Alert. Review / Management Results review Interpretation of Outside Results Chest x-ray results Radiology results ECG interpretation Condition Plan [employer] (ASA) physical status classification: Class II. Anesthetic Preoperative Plan Anesthesia: General. . Anesthetic plan, risks, benefits, and alternatives discussed with the patient and/or family. Risks discussed: nausea, vomiting, headache, sore throat, dental injury, serious complications. Patient verbalized understanding. Communication: face to face with patient 5 minutes. Normal [facility] Comment on above: Result Comment: Elec tronically Signed By: MD Sarita, Joceline Julien\.br\Date and Time Signed: 04/05/23 12:16 EST CBC w/ Auto Diffon 4 Anisocytosis Ql (Bld) PRESENT Invalid Interpretation Code [facility] Comment on above: Performed By: #### 2 [id number] ####[facility] [address] [place] [address] Hypochromasia PRESENT Invalid Interpretation Code [facility] Comment on above: Performed By: #### 2 [id number] ####[facility] [address] [place] [address] Microcyte PRESENT Invalid Interpretation Code [facility] Comment on above: Performed By: #### 2 [id number] ####[facility] [address] [place] [address] RBC morphology finding Nom (Bld) SEE MORPHOLOGY Invalid Interpretation Code [facility] Comment on above: Performed By: #### 2 [id number] ####[facility] [address] [place] [address] Basophil Absolute 0.0 E9/L Normal 0.0-0.[address] [facility] Comment on above: Performed By: #### 2 [id number] ####[facility] [address] [place] [address] Basophils/100 WBC (Bld) 0.5 % Normal 0.0-2.[address] [facility] Comment on above: Performed By: #### 2 [id number] ####[address] [address] Eos Absolute 0.0 E9/L Normal 0.0-0.[address] [facility] Comment on above: Performed By: #### 2 [id number] ####[address] [address] Eosinophils/100 WBC (Bld) 0.6 % Normal 0.0-8.[address] [facility] Comment on above: Performed By: #### 2 [id number] ####[facility] [address] [place] [address] Erythrocyte distribution width (RBC) [Ratio] 16.0 % High 10.9-14.[address] [facility] Comment on above: Performed By: #### 2 [id number] ####[address] [address] Hematocrit (Bld) [Volume fraction] 33.0 % Low 34.0-46.[address] [facility] Comment on above: Performed By: #### 2 799772 ####[facility] [address] [place] [address] Hemoglobin (Bld) [Mass/Vol] 10.2 g/dL Low 12.0-16.[address] [facility] Comment on above: Performed By: #### 2 544931 ####[facility] [address] [place] [address] Lymph Absolute 1.8 E9/L Normal 1.0-4.0 [facility] Comment on above: Performed By: #### 2 509938 ####[facility] [address] [place] [address], [place] [address] Lymphocytes/100 WBC (Bld) 28.0 % Normal 14.0-50.[address] [facility] Comment on above: Performed By: #### 2 [id number] ####[address] [address] MCH (RBC) [Entitic mass] 23.2 pg Low 27.0-34.[address] [facility] Comment on above: Performed By: #### 2 522393 ####[address] [address] MCHC (RBC) [Mass/Vol] 31.3 g/dL Low 31.4-36.0 [facility] Comment on above: Performed By: #### 2 620724 ####[address] [address] MCV (RBC) [Entitic vol] 74.0 fL Low 80.0-100.[address] [facility] Comment on above: Performed By: #### 2 044914 ####[facility] [address] [place] [address] Scurry Absolute 0.4 E9/L Normal 0.2-1.0 [facility] Comment on above: Performed By: #### 2 739417 ####[place] [place] [address] Monocytes/100 WBC (Bld) 6.4 % Normal 4.0-14.[address] [facility] Comment on above: Performed By: #### 2 812391 ####[facility] [address] [place] [address] Neutro Absolute 4.0 E9/L Normal 2.0-7.5 [facility] Comment on above: Performed By: #### 2 794039 ####[facility] [address] [place] [address] Neutro Auto 64.5 % Normal 36.0-75.[address] [facility] Comment on above: Performed By: #### 2 719079 ####[facility] [address] [place] [address] Platelet 239.0 E9/L Normal 150.0-500.[address] [facility] Comment on above: Performed By: #### 2 478386 ####[facility] [address] [place] [address] Platelet mean volume (Bld) [Entitic vol] 8.0 fL Normal 6.4-10.[address] [facility] Comment on above: Performed By: #### 2 363853 ####[facility] [address] [place] [address] RBC 4.4 E12/L Normal 4.3-5.[address] [facility] Comment on above: Performed By: #### 2 618393 ####[facility] [address] [place] [address] WBC 6.3 E9/L Normal 4.0-11.[address] [facility] Comment on above: Performed By: #### 2 916182 ####[facility] [address] [place] [address] Consent for Treatmenton 03-15 Consent for Treatment [id number] #[id number] Normal [facility] Discharge Instructionson Discharge Instructions DARSHAN CLINTON :2000 Visit Date:04/04/2023 Inpatient Discharge Instructions Your Care Team Admitting Physician - Agatha Stafford DO Referring Physician - Agatha Stafford DO Reason for Your Visit N93.0 N92.6 N94.89 Your Diagnosis Acute pelvic pain Endometrial mass Irregular menstrual bleeding PCB (post coital bleeding) This Is Your Medications List cariprazine (Vraylar 1.5 mg oral capsule) ethinyl estradiol-norgestima te (ethinyl estradiol-norgestima te 35 mcg-0.25 mg Tab) What to do next Instructions From Your Doctor Event Name Event Result Discharge Instructions Discharge Instructions New Follow Up Appointments after Discharge Follow Up with Agatha Stafford When: Comments: Call for any problems. Call for followup appointment Where: [address] [place] [address] [place] [id number] Business (1) Medications What How Much When Instructions Next Dose Unchanged cariprazine (Vraylar 1.5 mg oral capsule) 1 Capsules By Mouth Every day Unchanged ethinyl estradiol-norgestima te (ethinyl estradiol-norgestima te 35 mcg-0.25 mg Tab) 1 Tablets By Mouth Every day Test Results CBC WBC: 6.3 E9/L (04/04/23 07:23:00) RBC: 4.4 E12/L (04/04/23 07:23:00) HGB: 10.2 gm/dL Low (04/04/23 07:23:00) Hct: 33 % Low (04/04/23 07:23:00) MCV: 74 fL Low (04/04/23 07:23:00) MCH: 23.2 pg Low (04/04/23 07:23:00) MCHC: 31.3 gm/dL Low (04/04/23 07:23:00) RDW: 16 % High (04/04/23 07:23:00) Platelet: 239 E9/L (04/04/23 07:23:00) MPV: 8 fL (04/04/23 07:23:00) Allergies No Known Allergies Education Materials Instructions post D & C, hysteroscopy, LEEP or Essure/laparoscopy You can resume all normal activities within 24 hours following surgery. For 24 hours: no driving, making any important decisions, drinking alcohol ? and a responsible adult should stay with you today. Please refrain from intercourse, douches, and tampons for the next two weeks. You can expect some vaginal spotting, cramps, or light bleeding for a week and up to ten days after surgery. This is normal. If you are soaking a pad an hour or more frequently ? you need to call your doctor. Your first period may not be normal, but most women resume their normal cycles within a month or two. It is helpful for your doctor if you keep a written record of your bleeding following surgery. When abnormal bleeding persists for 2-3 cycles, please bring the record to your doctor. Return to the office for post-operative check, and to go over any biopsy results at your scheduled appointment; usually two weeks following surgery. If you are uncertain if an appointment has been made, please call the office. CALL THE DOCTOR if you have severe pain, heavy bleeding, or a temperature of 100.5 or higher. Resume your regular home medication schedule as soon as you are eating a regular diet. You can either take the prescribed medications as directed for pain, or you can take over the counter pain medication such as Motrin, as indicated on the package for pain or cramps. PLEASE CALL FOR ANY PROBLEMS Common Emergency Awareness Tips IS IT A STROKE? Act FAST and Check for these signs: FACE Does the face look uneven? ARM Does one arm drift down? SPEECH Does their speech sound strange? TIME Call at any sign of stroke Heart Attack Signs Chest discomfort: Most heart attacks involve discomfort in the center of the chest and lasts more than a few minutes, or goes away and comes back. It can feel like uncomfortable pressure, squeezing, fullness or pain. Discomfort in upper body: Symptoms can include pain or discomfort in one or both arms, back, neck, jaw or stomach. Shortness of breath: With or without discomfort. Other signs: Breaking out in a cold sweat, nausea, or lightheaded. Remember, MINUTES DO MATTER. If you experience any of these heart attack warning signs, call to get immediate medical attention! Patient Survey You may receive a survey in the mail asking you about your stay with us. We want to hear from you, please share your experience with us by completing your survey. Thank you for choosing [facility]. Carlton Award Nomination The CARLTON (Diseases Attacking the Immune SYstem) Award is an international recognition program that honors and celebrates the skillful, compassionate care nurses provide every day. Anyone who experiences or observes amazing care being provided by a nurse is encouraged to submit a nomination. To nominate your nurse, use your smart phone to scan the QR code below. Patient Portal You may access all of your results and other medical record information on our secure patient portal. If you are not signed up for this yet, please contact Health Information Management at [phone] to get signed up today. Patient Name: DARSHAN CLINTON I have received this infor (more content not included)... Normal [facility] Comment on above: Result Comment: Elec tronically Signed By: Thais PAREKH, Stormy George.amie\Date and Time Signed: 04/04/23 10:38 EST Discharge Instructions DARSHAN CLINTON :2000 Visit Date:04/04/2023 Inpatient Discharge Instructions Your Care Team Admitting Physician - Agatha Stafford DO Referring Physician - Agatha Stafford DO Reason for Your Visit N93.0 N92.6 N94.89 Your Diagnosis Acute pelvic pain Endometrial mass Irregular menstrual bleeding PCB (post coital bleeding) Tests Performed Pathology Tissue Exam -- Results Pending -- Please visit your patient portal for your results or contact your primary care physician. This Is Your Medications List cariprazine (Vraylar 1.5 mg oral capsule) ethinyl estradiol-norgestima te (ethinyl estradiol-norgestima te 35 mcg-0.25 mg Tab) Procedure History Tonsillectomy and adenoidectomy. What to do next Instructions From Your Doctor No qualifying data available. New Follow Up Appointments after Discharge Follow Up with Agatha Stafford When: Comments: Call for any problems. Call for followup appointment Where: [facility] [address]j Lazaro [address] [address] [facility] (1) Medications What How Much When Instructions Next Dose Unchanged cariprazine (Vraylar 1.5 mg oral capsule) 1 Capsules By Mouth Every day Unchanged ethinyl estradiol-norgestima te (ethinyl estradiol-norgestima te 35 mcg-0.25 mg Tab) 1 Tablets By Mouth Every day Test Results CBC WBC: 6.3 E9/L (04/04/23 07:23:00) RBC: 4.4 E12/L (04/04/23 07:23:00) HGB: 10.2 gm/dL Low (04/04/23 07:23:00) Hct: 33 % Low (04/04/23:23:00) MCV: 74 fL Low (04/04/23:23:00) MCH: 23.2 pg Low (04/04/23 07:23:00) MCHC: 31.3 gm/dL Low (04/04/23 07:23:00) RDW: 16 % High (04/04/23:23:00) Platelet: 239 E9/L (04/04/23:23:00) MPV: 8 fL (04/04/23 07:23:00) Allergies No Known Allergies Education Materials Instructions post D & C, hysteroscopy, LEEP or Essure/laparoscopy You can resume all normal activities within 24 hours following surgery. For 24 hours: no driving, making any important decisions, drinking alcohol ? and a responsible adult should stay with you today. Please refrain from intercourse, douches, and tampons for the next two weeks. You can expect some vaginal spotting, cramps, or light bleeding for a week and up to ten days after surgery. This is normal. If you are soaking a pad an hour or more frequently ? you need to call your doctor. Your first period may not be normal, but most women resume their normal cycles within a month or two. It is helpful for your doctor if you keep a written record of your bleeding following surgery. When abnormal bleeding persists for 2-3 cycles, please bring the record to your doctor. Return to the office for post-operative check, and to go over any biopsy results at your scheduled appointment; usually two weeks following surgery. If you are uncertain if an appointment has been made, please call the office. CALL THE DOCTOR if you have severe pain, heavy bleeding, or a temperature of 100.5 or higher. Resume your regular home medication schedule as soon as you are eating a regular diet. You can either take the prescribed medications as directed for pain, or you can take over the counter pain medication such as Motrin, as indicated on the package for pain or cramps. PLEASE CALL FOR ANY PROBLEMS Common Emergency Awareness Tips IS IT A STROKE? Act FAST and Check for these signs: FACE Does the face look uneven? ARM Does one arm drift down? SPEECH Does their speech sound strange? TIME Call at any sign of stroke Heart Attack Signs Chest discomfort: Most heart attacks involve discomfort in the center of the chest and lasts more than a few minutes, or goes away and comes back. It can feel like uncomfortable pressure, squeezing, fullness or pain. Discomfort in upper body: Symptoms can include pain or discomfort in one or both arms, back, neck, jaw or stomach. Shortness of breath: With or without discomfort. Other signs: Breaking out in a cold sweat, nausea, or lightheaded. Remember, MINUTES DO MATTER. If you experience any of these heart attack warning signs, call to get immediate medical attention! Patient Survey You may receive a survey in the mail asking you about your stay with us. We want to hear from you, please share your experience with us by completing your survey. Thank you for choosing [facility]. Carlton Award Nomination The CARLTON (Diseases Attacking the Immune SYstem) Award is an international recognition program that honors and celebrates the skillful, compassionate care nurses provide every day. Anyone who experiences or observes amazing care being provided by a nurse is encouraged to submit a nomination. To nominate your nurse, use your smart phone to scan the QR code below. Patient Portal You may access all of your results and other medical record information on our secure patient portal. If you are not signed up for this yet, (more content not included)... Normal [facility] Comment on above: Result Comment: Elec tronically Signed By: Vandana PAREKH, Tierney Castaneda\.br\Date and Time Signed: 04/04/23 10:21 EST HEMATOLOGYOrdered By: Coco Dodge on 04-04-2023 Anisocytosis Ql (Bld) PRESENT Invalid Interpretation Code Remisol Heme Hypochromasia PRESENT Invalid Interpretation Code Rem[facility] Microcyte PRESENT Invalid Interpretation Code Remisol Heme RBC morphology finding Nom (Bld) SEE MORPHOLOGY Invalid Interpretation Code Remisol [facility]e HEMATOLOGYOrdered By: SYSTEM SYSTEM on 04-04-2023 Basophil Absolute 0.0 E9/L Normal 0.0 - 0.2 E9/L Remisol [facility]e Basophils/100 WBC (Bld) 0.5 % Normal 0.0 - 2.0 % Remisol [facility]e Eos Absolute 0.0 E9/L Normal 0.0 - 0.5 E9/L Rem[facility] Eosinophils/100 WBC (Bld) 0.6 % Normal 0.0 - 8.0 % Remisol Heme Erythrocyte distribution width (RBC) [Ratio] 16.0 % High 10.9 - 14.2 % Remisol Heme Hematocrit (Bld) [Volume fraction] 33.0 % Low 34.0 - 46.0 % Remisol Heme Hemoglobin (Bld) [Mass/Vol] 10.2 g/dL Low 12.0 - 16.0 gm/dL Remisol Heme Lymph Absolute 1.8 E9/L Normal 1.0 - 4.0 E9/L Remisol [facility]e Lymphocytes/100 WBC (Bld) 28.0 % Normal 14.0 - 50.0 % Remisol Heme MCH (RBC) [Entitic mass] 23.2 pg Low 27.0 - 34.0 pg Remisol Heme MCHC (RBC) [Mass/Vol] 31.3 g/dL Low 31.4 - 36.0 gm/dL Remisol Heme MCV (RBC) [Entitic vol] 74.0 fL Low 80.0 - 100.0 fL Remisol Heme Scurry Absolute 0.4 E9/L Normal 0.2 - 1.0 E9/L Remisol Heme Monocytes/100 WBC (Bld) 6.4 % Normal 4.0 - 14.0 % Remisol Heme Neutro Absolute 4.0 E9/L Normal 2.0 - 7.5 E9/L Rem[facility]e Neutro Auto 64.5 % Normal 36.0 - 75.0 % Remisol [facility]e Platelet 239.0 E9/L Normal 150.0 - 500.0 E9/L Remisol Heme Platelet mean volume (Bld) [Entitic vol] 8.0 fL Normal 6.4 - 10.8 fL Remisol Heme RBC 4.4 E12/L Normal 4.3 - 5.9 E12/L Remisol Heme WBC 6.3 E9/L Normal 4.0 - 11.0 E9/L Remisol Heme Inpatient Patient Summaryon 04-04-2023 Inpatient Patient Summary [address] [facility] Clinical Discharge Instructions PERSON INFORMATION Name: DARSHAN CLINTON PHYSICIANS Admitting Physician: Agatha Stafford DO Attending Physician: Agatha Stafford DO PCP: MICHAEL HAYWOOD DO Discharge Diagnosis: Acute pelvic pain; Endometrial mass; Irregular menstrual bleeding; PCB (post coital bleeding) Comment: PATIENT EDUCATION INFORMATION Instructions: Post Op Patient Instructions - FT (CUSTOM); RADIOLOGICAL ENGINEER - Post D&C, Hysteroscopy, LEEP or Essure/Laparoscopy (CUSTOM) Medication Leaflets: Follow up: With: Address: When: Agatha Stafford [address], [address] [address] Business (1) Comments: Call for any problems. Call for followup appointment MEDICATION LIST New Medications [id number], [address], [place] [id number], [phone] ibuprofen (ibuprofen 600 mg Tab) 1 Tablets By Mouth every 6 hours as needed Pain 1-3. Refills: 1. Medications to Continue with No Changes Other Medications cariprazine (Vraylar 1.5 mg oral capsule) 1 Capsules By Mouth every day. ethinyl estradiol-norgestima te (ethinyl estradiol-norgestima te 35 mcg-0.25 mg Tab) 1 Tablets By Mouth every day. Comment: Normal [facility] Main OR PACU I Recordon 03-15 Main OR PACU I Record PACU Phase I Document Type FT Summary Primary Physician: Agatha Stafford DO Finalized Date/Time: 04/04/23 09:57:52 Pt. Name: DARSHAN CLINTON Toño/Sex: 2000 Female Med Rec #: [id number] Physician: Agatha Stafford DO Financial #: [id number] Pt. Type: A Room/Bed: Admit/Disch: 04/04/23 06:05:15 - Institution: Case Times PACU I FT Pre-Care Text: Identifies barriers to communication and implements measures to provide psychological support Develops individualized plan of care, and ensures continuity of care Maintains patient's dignity and privacy, and maintains patient confidentiality Identifies and reports philosophical, cultural, and spiritual beliefs and values Identifies individual values and wishes concerning care Implements aseptic technique, and administers prescribed antibiotic therapy and immunizing agents as ordered Evaluates postoperative tissue perfusion Implements thermoregulation measures, and monitors body temperature Evaluates postoperative respiratory status Evaluates postoperative cardiac status Evaluates postoperative neurological status Assesses pain control, collaborated in initiating patient-controlled analgesia and implements alternative methods of pain control Verifies allergies, administers prescribed medications and solutions, evaluates response to medications Entry 1 In PACU I 04/04/23 09:15:00 Discharge from PACU 04/04/23 09:45:00 I Outcomes Met? Yes Last Modified By: Monisha Mclean RN 04/04/23 09:57:41 Post-Care Text: The patient demonstrates knowledge of the expected response to the operative or invasive procedure The patient's care is consistent with the individualized perioperative plan of care The patient's right to privacy is maintained The patient's value system, lifestyle, ethnicity, and culture are considered, respected, and incorporated into the perioperative plan of care The patient participates in decisions affecting his or her perioperative plan of care The patient is free from signs and symptoms of infection The patient has wound/tissue perfusion consistent with or improved from baseline levels established preoperatively The patient is at or returning to normothermia at the conclusion of the immediate postoperative period The patient's respiratory function is consistent with or improved from baseline levels established preoperatively The patient's cardiovascular status is consistent with or improved from baseline levels established preoperatively The patient's cardiovascular status is consistent with or improved from baseline levels established preoperatively The patient demonstrates and/or reports adequate pain control throughout the perioperative period The patient received appropriate medication(s), safely administered during the perioperative period Acuity Level PACU I FT Entry 1 Start Time 04/04/23 09:15:00 Stop Time 04/04/23 09:45:00 Acuity Level Acuity Level I Last Modified By: Monisha Mclean RN 04/04/23 09:57:49 Finalized By: Monisha Mclean RN Document Signatures Signed By: Monisha Mclean RN 04/04/23 09:[address] [facility] Main OR PACU II Recordon Main OR PACU II Record PACU Phase II Document Type FT Summary Primary Physician: Agatha Stafford DO Finalized Date/Time: 04/04/23 11:29:31 Pt. Name: MARY BETH DARSHAN Lundberg/Sex: 2000 Female Med Rec #: [id number] Physician: Agatha Stafford DO Financial #: [id number] Pt. Type: A Room/Bed: [place] [address] Admit/Disch: 04/04/23 06:05:15 - Institution: Case Times PACU II FT Pre-Care Text: Identifies barriers to communication and implements measures to provide psychological support and determines knowledge level Develops individualized plan of care, and ensures continuity of care Maintains patient's dignity and privacy, and maintains patient confidentiality Identifies and reports philosophical, cultural, and spiritual beliefs and values Identifies individual values and wishes concerning care administers prescribed antibiotic therapy and immunizing agents as ordered, Evaluates postoperative tissue perfusion Implements thermoregulation measures, and monitors body temperature Evaluates postoperative respiratory status Evaluates postoperative cardiac status Evaluates postoperative neurological status Assesses pain control, collaborated in initiating patient-controlled analgesia and implements alternative methods of pain control Verifies allergies, administers prescribed medications and solutions, evaluates response to medications Entry 1 In PACU II 04/04/23 09:45:00 Discharge from PACU 04/04/23 11:00:00 II Outcomes Met? Yes Last Modified By: Tierney Ross RN 04/04/23 11:29:28 Post-Care Text: The patient demonstrates knowledge of the expected response to the operative or invasive procedure The patient's care is consistent with the individualized perioperative plan of care The patient's right to privacy is maintained The patient's value system, lifestyle, ethnicity, and culture are considered, respected, and incorporated into the perioperative plan of care The patient participates in decisions affecting his or her perioperative plan of care. The patient is free from signs and symptoms of infection The patient has wound/tissue perfusion consistent with or improved from baseline levels established preoperatively The patient is at or returning to normothermia at the conclusion of the immediate postoperative period The patient's respiratory function is consistent with or improved from baseline levels established preoperatively The patient's cardiovascular status is consistent with or improved from baseline levels established preoperatively The patient's neurological status is consistent with or improved from baseline levels established preoperatively The patient demonstrates and/or reports adequate pain control throughout the perioperative period The patient received appropriate medication(s), safely administered during the perioperative period Finalized By: Tierney Ross RN Document Signatures Signed By: Tierney Ross RN 04/04/23 11:[address] [facility] Main OR Preoperative Recordo n 04-04-2023 Main OR Preoperative Record PreOp Document Type FT Summary Primary Physician: Agatha Stafford DO Finalized Date/Time: 04/04/23 08:50:49 Pt. Name: DARSHAN CLINTON/Sex: 2000 Female Med Rec #: [id number] Physician: Agatha Stafford DO Financial #: [id number] Pt. Type: A Room/Bed: [facility] Admit/Disch: 04/04/23 06:05:15 - Institution: Case Times PreOp FT Pre-Care Text: Verifies consent for planned procedure, identifies individual values and wishes concerning care, includes family members in perioperative teaching Entry 1 Patient Times. In Pre Surgery 04/04/23 06:10:00 Out Pre Surgery 04/04/23 08:22:00 Outcomes Met? Yes Last Modified By: Amelia Saeed RN 04/04/23 08:50:47 Post-Care Text: The patient participates in decisions affecting his or her perioperative plan of care Finalized By: Amelia Saeed RN Document Signatures Signed By: Amelia Saeed RN 04/04/23 08:[address] [facility] Monitor Recordon 04-04-2023 Monitor Record [id number]#[id number] Normal [facility] Monitor Record [id number] 0#1.00TIFF [facility] Operative Reporton Operative Report Indication for Surgery Patient is a 22-year-old -0-0-2 who initially presented to the office complaints of irregular menstrual bleeding associated with pelvic pain and postcoital bleeding. Patient currently on combination oral contraceptive pills which ineffectively controlling her irregular bleeding. Pelvic ultrasound was performed and revealed anteverted uterus measuring 86 x 36 x 48 mm with normal contour and homogeneous myometrial echotexture. Endometrium contains 12 x 7 x 12 mm focal area of increased echogenicity which suspicious for blood clots versus polyp. Endometrial thickness is 2.1 mm. Right ovary measuring 20 x 18 x 14 mm with no cyst identified. Left ovary measuring 22 x 21 x 15 mm with no cyst identified. Treatment/management options were discussed with patient. Patient voiced interest in proceeding with hysteroscopy dilatation and curettage endometrial mass. Preoperative Diagnosis N93.0 N92.6 N94.89 - Postcoital and contact bleeding, Irregular menstruation, unspecified, Other specified conditions associated with female genital organs and menstrual cycle Postoperative Diagnosis N93.0 N92.6 N94.89 - Postcoital and contact bleeding, Irregular menstruation, unspecified, Other specified conditions associated with female genital organs and menstrual cycle Operation HYSTEROSCOPY, HYSTEROSCOPY, D & C, ENDOMETRIAL MASS REMOVAL, . DILATATION & SUCTION CURETTAGE, HYSTEROSCOPY, D & C, ENDOMETRIAL MASS REMOVAL, . Surgeon(s) Agatha Stafford DO (Surgeon - Primary) Anesthesia General MD Sarita, Joceline Julien ([employer] Trap) Jim Dooley CRNA (Other) Estimated Blood Loss 25mL Urine Output None Findings Uterine cavity sounded to 9cm. Intracavitary mass noted on right uterine wall Specimen(s) Pathology Tissue Exam (Endometrial curettings,AP Specimen) Complications None Technique Patient was seen in the preoperative area all questions were asked and answered. Patient was brought to the operating room with IV fluid running and placed on the operating table without difficulty. General anesthesia was induced with LMA and patient was placed in the dorsolithotomy position with Colby type stirrups with the knees bent to 30 degree angles. Patient was prepped and draped in a normal sterile fashion and the bladder was drained with straight catheter. At this time timeout was called for the correct patient and correct procedure. Attention was brought to the patient's vagina and a weighted speculum was inserted to the posterior aspect the vagina and right angle was inserted to the anterior aspect of vagina to better visualize the cervix. Single-tooth tenaculum was used to grasp the anterior lip of the cervix and uterine cavity sounded to 9 cm. Cervical os was then gradually dilated with cervical dilators to accommodate the 5 mm hysteroscope. Hysteroscope was inserted into the uterine cavity and the left tubal ostia was visualized. The right tubal ostia was not visualized secondary to pedunculated mass on the right uterine wall. At this time the hysteroscope was removed and sharp curettage was performed and the intracavitary mass was removed intact. Endometrial mass was noted to be approximately 1 x 1.5 cm in diameter and firm in consistency. Sharp curettage was performed on the endometrial lining and all specimen was submitted to pathology evaluation. At this time a second look with a hysteroscopy was performed and the intracavitary mass was visualized anymore. Patient good hemostasis was noted on the endometrial lining. The hysteroscope was withdrawn. And the single-tooth tenaculum was taken off from the anterior cervical lip. Good hemostasis was noted from the uterus and the tenaculum sites. At this time patient was returned to dorsal supine position and awakened from anesthesia without difficulty. Sponge count correct x 2. Patient tolerated procedure well. Patient was then transferred to a stretcher and transported to the recovery room in a stable condition. Normal [facility] Comment on above: Result Comment: Elec tronically Signed By: Agatha Stafford DO\.br\Date and Time Signed: 04/04/23 11:06 EST Outpatient Surgery Discharge Instructionon 04-04-2023 Outpatient Surgery Discharge Instruction [place] [id number] Patient Discharge Instructions PERSON INFORMATION Name: DARSHAN CLINTON Date of : 2000 Current Date: 04/04/2023 10:45:26 PHYSICIANS Admitting Physician: Agatha Stafford DO Discharge Diagnosis: Acute pelvic pain; Endometrial mass; Irregular menstrual bleeding; PCB (post coital bleeding) DARSHAN CLINTON has been given the following list of follow-up instructions, prescriptions, and patient education materials: PATIENT FOLLOW-UP INFORMATION Diet: Regular Discharge Activity: Activity as tolerated Call Your Doctor For: Persistent or heavy bleeding, Temperature above 101.5 degrees, Persistent vomiting Additional Instructions: Please keep your scheduled post-operartive appointment. Please contact the office with any concerns or questions IF UNABLE TO CONTACT YOUR PHYSICIAN AND YOU FEEL IT IS AN EMERGENCY, GO TO THE NEAREST EMERGENCY ROOM OR CALL 911 IMARY BETH ALEXIS, have received the attached patient education materials/instructio ns and have verbalized understanding: May we do a follow up call? Yes No I was present when discharge instructions were given Patient Signature Date Clinican/Nurse Signature Date Follow up: With: Address: When: Agatha Stafford [facility] Mick Espino, [address] [address] Business (1) Comments: Call for any problems. Call for followup appointment Pharmacy Information: You may receive a survey from [employer] asking you to rate your care experience. Your feedback is important and will help us understand what we do well and how we can improve the quality of care we provide to you, your loved ones and our community. It?s an honor to serve you. Thank you for choosing [facility] HERE ARE THE MEDICATION CHANGES THAT OCCURRED DURING YOUR HOSPITAL STAY New Medications [id number], [address] [place], [place] [id number], [phone] ibuprofen (ibuprofen 600 mg Tab) 1 Tablets By Mouth every 6 hours as needed Pain 1-3. Refills: 1. Medications to Continue with No Changes Other Medications cariprazine (Vraylar 1.5 mg oral capsule) 1 Capsules By Mouth every day. ethinyl estradiol-norgestima te (ethinyl estradiol-norgestima te 35 mcg-0.25 mg Tab) 1 Tablets By Mouth every day. PATIENT EDUCATION INFORMATION Instructions: Instructions post D & C, hysteroscopy, LEEP or Essure/laparoscopy You can resume all normal activities within 24 hours following surgery. For 24 hours: no driving, making any important decisions, drinking alcohol ? and a responsible adult should stay with you today. Please refrain from intercourse, douches, and tampons for the next two weeks. You can expect some vaginal spotting, cramps, or light bleeding for a week and up to ten days after surgery. This is normal. If you are soaking a pad an hour or more frequently ? you need to call your doctor. Your first period may not be normal, but most women resume their normal cycles within a month or two. It is helpful for your doctor if you keep a written record of your bleeding following surgery. When abnormal bleeding persists for 2-3 cycles, please bring the record to your doctor. Return to the office for post-operative check, and to go over any biopsy results at your scheduled appointment; usually two weeks following surgery. If you are uncertain if an appointment has been made, please call the office. CALL THE DOCTOR if you have severe pain, heavy bleeding, or a temperature of 100.5 or higher. Resume your regular home medication schedule as soon as you are eating a regular diet. You can either take the prescribed medications as directed for pain, or you can take over the counter pain medication such as Motrin, as indicated on the package for pain or cramps. PLEASE CALL FOR ANY PROBLEMS Medication Leaflets: Dorota [facility] Patient Education - Texton 0 04-04-2023 Patient Education - Text Instructions post D & C, hysteroscopy, LEEP or Essure/laparoscopy You can resume all normal activities within 24 hours following surgery. For 24 hours: no driving, making any important decisions, drinking alcohol ? and a responsible adult should stay with you today. Please refrain from intercourse, douches, and tampons for the next two weeks. You can expect some vaginal spotting, cramps, or light bleeding for a week and up to ten days after surgery. This is normal. If you are soaking a pad an hour or more frequently ? you need to call your doctor. Your first period may not be normal, but most women resume their normal cycles within a month or two. It is helpful for your doctor if you keep a written record of your bleeding following surgery. When abnormal bleeding persists for 2-3 cycles, please bring the record to your doctor. Return to the office for post-operative check, and to go over any biopsy results at your scheduled appointment; usually two weeks following surgery. If you are uncertain if an appointment has been made, please call the office. CALL THE DOCTOR if you have severe pain, heavy bleeding, or a temperature of 100.5 or higher. Resume your regular home medication schedule as soon as you are eating a regular diet. You can either take the prescribed medications as directed for pain, or you can take over the counter pain medication such as Motrin, as indicated on the package for pain or cramps. PLEASE CALL FOR ANY PROBLEMS Normal [facility] SEROLOGYOrdered By: Yasmeen Diaz on 04-04-2023 HCG.beta subunit (U) [Moles/Vol] Negative Normal [facility] BetaHcg Qualon 04-04-2023 HCG.beta subunit (U) [Moles/Vol] Negative Normal [facility] Comment on above: Performed By: #### [id number] ####[facility] [id number] [place] [address] Consent for Procedure/Surger yon 04-03-2023 Consent for Procedure/Surgery [id number] #1.00TIFF Normal [facility] Patient Provided Health Data on 02-08-2023 Patient Provided Health Data [id number] #1.00OTGTIFF [facility] Patient Handouton 02-07-2023 Patient Handout [id number] 4#1.00OTGTIFF Normal [facility] XR LSPINE MIN 4 VIEWSon 04-12 XR LSPINE MIN 4 VIEWS EXAMINATION: XR LSPINE MIN 4 VIEWS HISTORY: Low back pain since undergoing an epidural 8 weeks ago COMPARISON: XR L-spine 08/22/2020 FINDINGS: BONES: No significant spondylosis, scoliosis, fracture, or visible bony lesion. DISC SPACES: No significant disc height narrowing, subluxation, or endplate abnormality. PARASPINOUS: Negative. No paraspinous abnormality is seen. OTHER: Negative. IMPRESSION: 1. No acute abnormality or significant degenerative changes of the lumbar spine. 2. No foreign body or findings to account for patient's symptoms. Electronically authenticated by: KRUPA BURNETTE Date: 2022-05-07 11:44 Normal [facility] COVID Quick Testingon 2021 Result Negative [employer] Other Quick Strepon 11-11-2021 S. pyogenes Org specific cx Ql (Throat) Negative [employer] Other Quick Strep [employer] Other Basophils Auto (Bld) [#/Vol] Ordered By: AGATHA STAFFORD on 09-24-2021 Basophils (Bld) [#/Vol] 0.1 10*3/uL 0.0-0.2 [facility] Basophils/100 WBC Auto (Bld) Ordered By: AGATHA STAFFORD on 09-24-2021 Basophils/100 WBC (Bld) 0.5 % . [facility] Blood hemoglobin measurement (mass/volume)Ordered By: AGATHA STAFFORD on 09-24-2021 Hemoglobin (Bld) [Mass/Vol] 8.3 g/dL 11.8-15.4 [facility] Blood leukocytes automated c ount (number/volume)Ordered By: AGATHA STAFFORD on 09-24-2021 WBC (Bld) [#/Vol] 10.7 10*3/uL 4.5-11.0 [facility] Eosinophils Auto (Bld) [#/Vo l]Ordered By: AGATHA STAFFORD on 09-24-2021 Eosinophils (Bld) [#/Vol] 0.1 10*3/uL 0.0-0.45 [facility] Eosinophils/100 WBC Auto (Bl d)Ordered By: AGATHA STAFFORD on 09-24-2021 Eosinophils/100 WBC (Bld) 0.5 % . [facility] Erythrocyte distribution wid th Auto (RBC) [Ratio]Ordered By: AGATHA STAFFORD on 09-24-2021 Erythrocyte distribution width (RBC) [Ratio] 17.2 % 11.9-15.3 [facility] Hematocrit Auto (Bld) [Volum e fraction]Ordered By: AGATHA STAFFORD on 09-24-2021 Hematocrit (Bld) [Volume fraction] 26.1 % 34.0-46.4 [facility] Laboratory - Hematology and Cell countsOrdered By: AGATHA STAFFORD on 09-24-2021 Nucleated RBC/100 WBC (Bld) [Ratio] 0.1 % 0-0.5 [facility] Lymphocytes Auto (Bld) [#/Vo l]Ordered By: AGATHA STAFFORD on 09-24-2021 Lymphocytes (Bld) [#/Vol] 2.3 10*3/uL 1.00-4.8 [facility] Lymphocytes/100 WBC Auto (Bl d)Ordered By: AGATHA STAFFORD on 09-24-2021 Lymphocytes/100 WBC (Bld) 21.8 % . [facility] MCH Auto (RBC) [Entitic mass ]Ordered By: AGATHA STAFFORD on 09-24-2021 MCH (RBC) [Entitic mass] 22.8 pg 24.7-34.3 [facility] MCHC Auto (RBC) [Mass/Vol]Or dered By: AGATHA STAFFORD on 09-24-2021 MCHC (RBC) [Mass/Vol] 31.8 g/dL 32.0-35.0 [facility] MCV Auto (RBC) [Entitic vol] Ordered By: AGATHA STAFFORD on 09-24-2021 MCV (RBC) [Entitic vol] 71.7 fL 80-100 [facility] Monocytes Auto (Bld) [#/Vol] Ordered By: AGATHA STAFFORD on 09-24-2021 Monocytes (Bld) [#/Vol] 0.8 10*3/uL 0.0-0.8 [facility] Monocytes/100 WBC Auto (Bld) Ordered By: AGATHA STAFFORD on 09-24-2021 Monocytes/100 WBC (Bld) 7.0 % . [facility] Neutrophils Auto (Bld) [#/Vo l]Ordered By: AGATHA STAFFORD on 09-24-2021 Neutrophils (Bld) [#/Vol] 7.5 10*3/uL 1.8-7.7 [facility] Neutrophils/100 WBC Auto (Bl d)Ordered By: AGATHA STAFFORD on 09-24-2021 Neutrophils/100 WBC (Bld) 70.2 % . [facility] Platelet mean volume Auto (B ld) [Entitic vol]Ordered By: AGATHA STAFFORD on 09-24-2021 Platelet mean volume (Bld) [Entitic vol] 8.2 fL 6.3-10.7 [facility] Platelets Auto (Bld) [#/Vol] Ordered By: AGATHA STAFFORD on 09-24-2021 Platelets (Bld) [#/Vol] 238 10*3/uL 150-450 [facility] RBC Auto (Bld) [#/Vol]Ordere d By: AGATHA STAFFORD on 09-24-2021 RBC (Bld) [#/Vol] 3.65 10*6/uL 3.60-5.00 [facility] Urine culture routineOrdered By: OSVALDO Morton on 09-24-2021 Bacteria identified Cx Nom (U) 2 Days [facility] No Panel InformationOrdered By: OSVALDO Morton on 09-23-2021 SARS Antigen (LFIA) [facility] Amphetamine Screen Ql (U)Ord ered By: OSVALDO Morton on 09-22-2021 Amphetamines Ql (U) Negative Negative [facility] Automated erythrocytes count in urine sediment (number/area)Ordered By: OSVALDO Morton on 09-22-2021 RBC Auto (Urine sed) [#/Area] 5-9 [HPF] 0-4 [facility] Automated leukocytes count i n urine sediment (number/area)Ordered By: OSVALDO Morton on 09-22-2021 WBC Auto (Urine sed) [#/Area] 20-49 [HPF] 0-4 [facility] Automated urine hyaline cast s count (number/volume)Ordered By: OSVALDO Morton on 09-22-2021 Hyaline casts Auto (U) [#/Vol] 0-8 [LPF] 0-1 [facility] Automated urine sediment berenice cium oxalate crystal count by microscopy (number/high powOrdered By: OSVALDO Morton on 09-22-2021 Calcium oxalate crystals LM.HPF (Urine sed) [#/Area] 1+ [HPF] [facility] Barbiturates [Presence] in U rineOrdered By: OSVALDO Morton on 09-22-2021 Barbiturates Ql (U) Negative Negative [facility] Benzodiazepines [Presence] i n UrineOrdered By: OSVALDO Morton on 09-22-2021 Benzodiazepines Ql (U) Negative Negative [facility] Bilirubin Auto test strip Ql (U)Ordered By: OSVALDO Morton on 09-22-2021 Bilirubin Ql (U) Negative Negative [facility] COVID-19 SOFIAOrdered By: MD NINO Morton on 09-22-2021 SARS-CoV+SARS-CoV-2 (COVID-19) Ag IA.rapid Ql (Resp) Negative Negative [facility] Comment on above: This is a duplicate [facility]ir[facility] SARS Antigen (MADAN) result to be used for statistical tracking purpose only. Casts typing in urine sedime nt by light microscopyOrdered By: OSVALDO Morton on 09-22-2021 Casts LM Nom (Urine sed) None seen [LPF] None Seen [facility] Ketones Auto test strip (U) [Mass/Vol]Ordered By: OSVALDO Morton on 09-22-2021 Ketones (U) [Mass/Vol] Trace Negative [facility] Laboratory - Drug toxicology Ordered By: OSVALDO Morton on 09-22-2021 Opiates Ql (U) Negative Negative [facility] Mucus LM Ql (Urine sed)Order ed By: OSVALDO Morton on 09-22-2021 Mucus Ql (Urine sed) 3+ [LPF] [facility] Phencyclidine Screen Ql (U)O rdered By: OSVALDO Morton on 09-22-2021 Phencyclidine Ql (U) Negative Negative [facility] Comment on above: These are unconfirme d results and should not be used for legal purposes. Drug Cut-Off Concentration: AMPH 1000 ng/mL JANINA 200 ng/mL JOHN 200 ng/mL COCM 300 ng/mL OP 300 ng/mL PCP 25 ng/mL Protein Auto test strip (U) [Mass/Vol]Ordered By: OSVALDO Morton on 09-22-2021 Protein (U) [Mass/Vol] Trace mg/dL Negative [facility] Reagin Ab [Presence] in Seru m by RPROrdered By: OSVALDO Morton on 09-22-2021 Reagin Ab RPR Ql (S) Non-Reactive Non Reactive [facility] Comment on above: Performed at: [place] [id number] [employer] Operator: Shaun Blevins PhD, Phone: [phone] Squamous epithelial cells de tection in urine sediment by light microscopyOrdered By: OSVALDO Morton on 09-22-2021 Epithelial cells.squamous LM Ql (Urine sed) 3-4 [HPF] 0-2 [facility] Urine appearanceOrdered By: OSVALDO Morton on 09-22-2021 Appearance (U) Clear Clear [facility] Urine bacteria detection by automated methodOrdered By: OSVALDO Morton on 09-22-2021 Bacteria Auto Ql (U) 1+ None Seen [facility] Urine cocaine detectionOrder ed By: OSVALDO Morton on 09-22-2021 Cocaine Ql (U) Negative Negative [facility] Urine colorOrdered By: LETITIA Morton on 09-22-2021 Color (U) Dark yellow Yellow [facility] Urine glucose measurement by automated test strip (mass/volume)Ordered By: JOSE ALBERTO Morton on 09-22-2021 Glucose Auto test strip (U) [Mass/Vol] Normal mg/dL Normal [facility] Urine hemoglobin detection b y automated test stripOrdered By: OSVALDO Morton on 09-22-2021 Hemoglobin Auto test strip Ql (U) Trace Negative [facility] Urine leukocyte esterase det ection by automated test stripOrdered By: OSVALDO Morton on 09-22-2021 Leukocyte esterase Auto test strip Ql (U) 1+ Negative [facility] Urine nitrite detection by a utomated test stripOrdered By: OSVALDO Morton on 09-22-2021 Nitrite Auto test strip Ql (U) Negative Negative [facility] Urine sediment crystal ident ification by light microscopyOrdered By: OSVALDO Morton on 09-22-2021 Crystals LM Nom (Urine sed) None seen [HPF] [facility] Urobilinogen Auto test strip (U) [Mass/Vol]Ordered By: OSVALDO Morton on 09-22-2021 Urobilinogen (U) [Mass/Vol] Normal mg/dL Normal [facility] pH Auto test strip (U)Ordere d By: OSVALDO Morton on 09-22-2021 pH (U) 1.025 [pH] 1.001-1.030 [facility] pH (U) 6.0 [pH] 5.0-9.0 [facility] Amphetamine Screen Ql (U)Ord ered By: AGATHA STAFFORD on 09-21-2021 Amphetamines Ql (U) Negative Negative [facility] Automated erythrocytes count in urine sediment (number/area)Ordered By: AGATHA STAFFORD on 09-21-2021 RBC Auto (Urine sed) [#/Area] 0-1 [HPF] 0-4 [facility] Automated leukocytes count i n urine sediment (number/area)Ordered By: AGATHA STAFFORD on 09-21-2021 WBC Auto (Urine sed) [#/Area] 3-4 [HPF] 0-4 [facility] Automated urine hyaline cast s count (number/volume)Ordered By: AGATHA STAFFORD on 09-21-2021 Hyaline casts Auto (U) [#/Vol] 1-2 [LPF] 0-1 [facility] Barbiturates [Presence] in U rineOrdered By: AGATHA STAFFORD on 09-21-2021 Barbiturates Ql (U) Negative Negative [facility] Benzodiazepines [Presence] i n UrineOrdered By: AGATHA STAFFORD on 09-21-2021 Benzodiazepines Ql (U) Negative Negative [facility] Bilirubin Test strip Ql (U)O rdered By: AGATHA STAFFORD on 09-21-2021 Bilirubin Ql (U) Negative Negative [facility] Casts typing in urine sedime nt by light microscopyOrdered By: AGATHA STAFFORD on 09-21-2021 Casts LM Nom (Urine sed) None seen [LPF] None Seen [facility] Color Auto (U)Ordered By: SAAD STAFFORD on 09-21-2021 Color (U) Yellow Yellow [facility] Ketones Auto test strip (U) [Mass/Vol]Ordered By: AGATHA STAFFORD on 09-21-2021 Ketones (U) [Mass/Vol] Trace Negative [facility] Laboratory - Drug toxicology Ordered By: AGATHA STAFFORD on 09-21-2021 Opiates Ql (U) Negative Negative [facility] Nitrite Test strip Ql (U)Ord ered By: AGATHA STAFFORD on 09-21-2021 Nitrite Ql (U) Negative Negative [facility] Phencyclidine Screen Ql (U)O rdered By: AGATHA STAFFORD on 09-21-2021 Phencyclidine Ql (U) Negative Negative [facility] Comment on above: These are unconfirme d results and should not be used for legal purposes. Drug Cut-Off Concentration: AMPH 1000 ng/mL JANINA 200 ng/mL JOHN 200 ng/mL COCM 300 ng/mL OP 300 ng/mL PCP 25 ng/mL Protein Auto test strip (U) [Mass/Vol]Ordered By: AGATHA STAFFORD on 09-21-2021 Protein (U) [Mass/Vol] Trace mg/dL Negative [facility] Specific gravity Auto test s trip (U) [Rel density]Ordered By: AGATHA STAFFORD on 09-21-2021 Specific gravity (U) [Rel density] 1.023 1.001-1.030 [facility] Squamous epithelial cells de tection in urine sediment by light microscopyOrdered By: AGATHA STAFFORD on 09-21-2021 Epithelial cells.squamous LM Ql (Urine sed) 5-9 [HPF] 0-2 [facility] Urine bacteria detection by automated methodOrdered By: AGATHA STAFFORD on 09-21-2021 Bacteria Auto Ql (U) 1+ None Seen [facility] Urine clarity by refractomet ry automatedOrdered By: AGATHA STAFFORD on 09-21-2021 Clarity Refractometry automated (U) Cloudy Clear [facility] Urine cocaine detectionOrder ed By: AGATHA STAFFORD on 09-21-2021 Cocaine Ql (U) Negative Negative [facility] Urine glucose measurement by automated test strip (mass/volume)Ordered By: AGATHA STAFFORD on 09-21-2021 Glucose Auto test strip (U) [Mass/Vol] Normal mg/dL Normal [facility] Urine hemoglobin detection b y automated test stripOrdered By: AGATHA STAFFORD on 09-21-2021 Hemoglobin Auto test strip Ql (U) Negative Negative [facility] Urine leukocyte esterase det ection by automated test stripOrdered By: AGATHA STAFFORD on 09-21-2021 Leukocyte esterase Auto test strip Ql (U) Negative Negative [facility] Urobilinogen Auto test strip (U) [Mass/Vol]Ordered By: AGATHA STAFFORD on 09-21-2021 Urobilinogen (U) [Mass/Vol] Normal mg/dL Normal [facility] pH Auto test strip (U)Ordere d By: AGATHA STAFFORD on 09-21-2021 pH (U) 7.0 [pH] 5.0-9.0 [facility] Urine culture routineOrdered By: AGATHA STAFFORD on 09-16-2021 Bacteria identified Cx Nom (U) [facility] Amphetamine Screen Ql (U)Ord ered By: OSVALDO Morton on 09-15-2021 Amphetamines Ql (U) Negative Negative [facility] Automated erythrocytes count in urine sediment (number/area)Ordered By: OSVALDO Morton on 09-15-2021 RBC Auto (Urine sed) [#/Area] 0-1 [HPF] 0-4 [facility] Automated leukocytes count i n urine sediment (number/area)Ordered By: OSVALDO Morton on 09-15-2021 WBC Auto (Urine sed) [#/Area] 1-2 [HPF] 0-4 [facility] Barbiturates [Presence] in U rineOrdered By: OSVALDO Morton on 09-15-2021 Barbiturates Ql (U) Negative Negative [facility] Benzodiazepines [Presence] i n UrineOrdered By: OSVALDO Morton on 09-15-2021 Benzodiazepines Ql (U) Negative Negative [facility] Bilirubin Test strip Ql (U)O rdered By: OSVALDO Morton on 09-15-2021 Bilirubin Ql (U) Negative Negative [facility] Color Auto (U)Ordered By: MD NINO Morton on 09-15-2021 Color (U) Yellow Yellow [facility] Ketones Auto test strip (U) [Mass/Vol]Ordered By: OSVALDO Morton on 09-15-2021 Ketones (U) [Mass/Vol] Negative Negative [facility] - Drug toxicology Ordered By: OSVALDO Morton on 09-15-2021 Opiates Ql (U) Negative Negative [facility] - UrinalysisOrder ed By: OSVALDO Morton on 09-15-2021 Hyaline casts LM Ql (Urine sed) 0-8 [LPF] 0-8 [facility] Nitrite Test strip Ql (U)Ord ered By: OSVALDO Morton on 09-15-2021 Nitrite Ql (U) Negative Negative [facility] No Panel InformationOrdered By: OSVALDO Morton on 09-15-2021 Membranes Rupture (PAMG-1) Negative Negative [facility] Phencyclidine Screen Ql (U)O rdered By: OSVALDO Morton on 09-15-2021 Phencyclidine Ql (U) Negative Negative [facility] Comment on above: These are unconfirme d results and should not be used for legal purposes. Drug Cut-Off Concentration: AMPH 1000 ng/mL JANINA 200 ng/mL JOHN 200 ng/mL COCM 300 ng/mL OP 300 ng/mL PCP 25 ng/mL Protein Auto test strip (U) [Mass/Vol]Ordered By: OSVALDO Morton on 09-15-2021 Protein (U) [Mass/Vol] Trace mg/dL Negative [facility] Specific gravity Auto test s trip (U) [Rel density]Ordered By: OSVALDO Morton on 09-15-2021 Specific gravity (U) [Rel density] 1.031 1.001-1.030 [facility] Squamous epithelial cells de tection in urine sediment by light microscopyOrdered By: OSVALDO Morton on 09-15-2021 Epithelial cells.squamous LM Ql (Urine sed) 1-2 [HPF] 0-2 [facility] Urine bacteria detection by automated methodOrdered By: OSVALDO Morton on 09-15-2021 Bacteria Auto Ql (U) None seen None Seen [facility] Urine clarity by refractomet ry automatedOrdered By: OSVALDO Morton on 09-15-2021 Clarity Refractometry automated (U) Clear Clear [facility] Urine cocaine detectionOrder ed By: OSVALDO Morton on 09-15-2021 Cocaine Ql (U) Negative Negative [facility] Urine glucose measurement by automated test strip (mass/volume)Ordered By: JOSE ALBERTO Morton on 09-15-2021 Glucose Auto test strip (U) [Mass/Vol] Normal mg/dL Normal [facility] Urine hemoglobin detection b y automated test stripOrdered By: OSVALDO Morton on 09-15-2021 Hemoglobin Auto test strip Ql (U) Negative Negative [facility] Urine leukocyte esterase det ection by automated test stripOrdered By: OSVALDO Morton on 09-15-2021 Leukocyte esterase Auto test strip Ql (U) Negative Negative [facility] Urobilinogen Auto test strip (U) [Mass/Vol]Ordered By: OSVALDO Morton on 09-15-2021 Urobilinogen (U) [Mass/Vol] Normal mg/dL Normal [facility] pH Auto test strip (U)Ordere d By: OSVALDO Morton on 09-15-2021 pH (U) 6.0 [pH] 5.0-9.0 [facility] Amphetamine Screen Ql (U)Ord ered By: AGATHA STAFFORD on 09-14-2021 Amphetamines Ql (U) Negative Negative [facility] Automated erythrocytes count in urine sediment (number/area)Ordered By: AGATHA STAFFORD on 09-14-2021 RBC Auto (Urine sed) [#/Area] 0-1 [HPF] 0-4 [facility] Automated leukocytes count i n urine sediment (number/area)Ordered By: AGATHA STAFFORD on 09-14-2021 WBC Auto (Urine sed) [#/Area] 10-19 [HPF] 0-4 [facility] Barbiturates [Presence] in U rineOrdered By: AGATHA STAFFORD on 09-14-2021 Barbiturates Ql (U) Negative Negative [facility] Benzodiazepines [Presence] i n UrineOrdered By: AGATHA STAFFORD on 09-14-2021 Benzodiazepines Ql (U) Negative Negative [facility] Bilirubin Auto test strip Ql (U)Ordered By: AGATHA STAFFORD on 09-14-2021 Bilirubin Ql (U) Negative Negative [facility] Ketones Auto test strip (U) [Mass/Vol]Ordered By: AGATHA STAFFORD on 09-14-2021 Ketones (U) [Mass/Vol] Negative Negative [facility] - Drug toxicology Ordered By: AGATHA STAFFORD on 09-14-2021 Opiates Ql (U) Negative Negative [facility] - UrinalysisOrder ed By: AGATHA STAFFORD on 09-14-2021 Hyaline casts LM Ql (Urine sed) 0-8 [LPF] 0-8 [facility] Phencyclidine Screen Ql (U)O rdered By: AGATHA STAFFORD on 09-14-2021 Phencyclidine Ql (U) Negative Negative [facility] Comment on above: These are unconfirme d results and should not be used for legal purposes. Drug Cut-Off Concentration: AMPH 1000 ng/mL JANINA 200 ng/mL JOHN 200 ng/mL COCM 300 ng/mL OP 300 ng/mL PCP 25 ng/mL Protein Auto test strip (U) [Mass/Vol]Ordered By: AGATHA STAFFORD on 09-14-2021 Protein (U) [Mass/Vol] Negative Negative [facility] Squamous epithelial cells de tection in urine sediment by light microscopyOrdered By: AGATHA STAFFORD on 09-14-2021 Epithelial cells.squamous LM Ql (Urine sed) 3-4 [HPF] 0-2 [facility] Urine appearanceOrdered By: AGATHA STAFFORD on 09-14-2021 Appearance (U) Clear Clear [facility] Urine bacteria detection by automated methodOrdered By: AGATHA STAFFORD on 09-14-2021 Bacteria Auto Ql (U) 1+ None Seen [facility] Urine cocaine detectionOrder ed By: AGATHA STAFFORD on 09-14-2021 Cocaine Ql (U) Negative Negative [facility] Urine colorOrdered By: AGATHA STAFFORD on 09-14-2021 Color (U) Yellow Yellow [facility] Urine glucose measurement by automated test strip (mass/volume)Ordered By: AGATHA STAFFORD on 09-14-2021 Glucose Auto test strip (U) [Mass/Vol] Normal mg/dL Normal [facility] Urine hemoglobin detection b y automated test stripOrdered By: AGATHA STAFFORD on 09-14-2021 Hemoglobin Auto test strip Ql (U) Negative Negative [facility] Urine leukocyte esterase det ection by automated test stripOrdered By: AGATHA STAFFORD on 09-14-2021 Leukocyte esterase Auto test strip Ql (U) 2+ Negative [facility] Urine nitrite detection by a utomated test stripOrdered By: AGATHA STAFFORD on 09-14-2021 Nitrite Auto test strip Ql (U) Negative Negative [facility] Urobilinogen Auto test strip (U) [Mass/Vol]Ordered By: AGATHA STAFFORD on 09-14-2021 Urobilinogen (U) [Mass/Vol] Normal mg/dL Normal [facility] pH Auto test strip (U)Ordere d By: AGATHA STAFFORD on 09-14-2021 pH (U) 1.020 [pH] 1.001-1.030 [facility] pH (U) 7.0 [pH] 5.0-9.0 [facility] S. agalactiae Org specific c x Ql (Unsp spec)Ordered By: AGATHA STAFFORD on 09-09-2021 Streptococcus agalactiae culture No Group B Beta Streptococcus Isolated 3 Days [facility] CULTURE URINEon 08-19-2021 CULTURE URINE Culture Observations: LIGHT GROWTH OF MIXED GENITAL LISA. NO POTENTIAL PATHOGENS SEEN. Normal [facility] Comment on above: Performed By: #### U RCX #### [facility] [address] [place] [address] Dr. Justo Yoo UA (CLEAN/CATCH) METAL MODEL BUILDER/MICRO I F IND.on 08-19-2021 Bilirubin Ql (U) Negative Normal NEGATIVE [facility] Comment on above: Performed By: #### U ACSIND, ICRO #### [facility] [address] [address] [address] Justo Yoo Clarity (U) CLEAR Normal CLEAR [facility] Comment on above: Performed By: #### U ACSIND, ICRO #### [facility] [address] [place] [address] Dr. Justo Yoo Color (U) LT. YELLOW Normal YELLOW [facility] Comment on above: Performed By: #### U ACSIND, UMICRO #### [facility] [address] [place] [address] Dr. Justo Yoo Glucose Ql (U) Negative Normal NEGATIVE [facility] Comment on above: Performed By: #### U ACSIND, UMICRO #### [facility] [address] [place] [address] Dr. Justo Yoo Hemoglobin Ql (U) Negative Normal NEGATIVE [facility] Comment on above: Performed By: #### U ACSIND, UMICRO #### [facility] [address] [place] [address] Dr. Justo Yoo Ketones Ql (U) Negative Normal NEGATIVE [facility] Comment on above: Performed By: #### U ACSIND, UMICRO #### [facility] [address] [place] [address] Dr. Justo Yoo LEUKOCYTES SMALL Abnormal NEGATIVE [facility] Comment on above: Performed By: #### U ACSIND, UMICRO #### [facility] [address] [place] [address] Dr. Justo Yoo Nitrite Ql (U) Negative Normal NEGATIVE [facility] Comment on above: Performed By: #### U ACSIND, UMICRO #### [facility] [address] [place] [address] Dr. Justo Yoo pH (U) 6.0 [pH] Normal 5-9 [facility] Comment on above: Performed By: #### U ACSIND, UMICRO #### [facility] [address] [place] [address] Dr. Justo Yoo SPEC GRAVITY 1.025 Normal 1.005-<=1.02 5 [facility] Comment on above: Performed By: #### U ACSLASHA, UMICRO #### [facility] [address] [place] [address] Dr. Justo Yoo UA PROTEIN Negative Normal NEGATIVE/ TRACE [facility] Comment on above: Performed By: #### U ACSIND, UMICRO #### [facility] [address] [place] [address] Dr. Justo Yoo UR MICRO IND INDICATED Normal [facility] Comment on above: Performed By: #### U ACSIND, UMICRO #### [facility] [address] [place] [address] Dr. Justo Yoo Urobilinogen Qn (U) 0.2 {Allen'U}/dL Normal 0.2 - 1. 0 [facility] Comment on above: Performed By: #### U ACSIND, UMICRO #### [facility] [address] [place] [address] Dr. Justo Yoo URINE MICROSCOPIC ONLYon AMORPHOUS CRYSTALS FEW Normal [facility] Comment on above: Performed By: #### U ACSIND, UMICRO #### [facility] [address] [place] [address] Dr. Justo Yoo BACTERIA SMALL Abnormal NONE SEEN [facility] Comment on above: Performed By: #### U ACSIND, UMICRO #### [facility] [address] [address] [address] Justo Yoo Bacteria identified Cx Nom (U) INDICATED Normal [facility] Comment on above: Performed By: #### U ACSIND, UMICRO #### [facility] [address] [place] [address] Dr. Justo Yoo CAST NONE SEEN Normal NONE SEEN [facility] Comment on above: Performed By: #### U ACSIND, UMICRO #### [facility] [address] [place] [address] Dr. Justo Yoo Crystals LM Nom (Urine sed) SEEN Abnormal NONE SEEN [facility] Comment on above: Performed By: #### U ACSIND, UMICRO #### [facility] [address] [place] [address] Dr. Justo Yoo Epithelial cells LM Ql (Urine sed) FEW Abnormal NONE SEEN /RARE [facility] Comment on above: Performed By: #### U ACSIND, UMICRO #### [facility] [address] [place] [address] Dr. Justo Yoo MUCOUS NONE SEEN Normal NONE SEEN [facility] Comment on above: Performed By: #### U ACSIND, UMICRO #### [facility] [address] [place] [address] Dr. Justo Yoo RBC 2-5 Abnormal 0-2 [facility] Comment on above: Performed By: #### U ACSIND, UMICRO #### [facility] [address] [place] [address] Dr. Justo Yoo WBC 2-5 Abnormal NONE SEEN [facility] Comment on above: Performed By: #### U ACSIND, UMICRO #### [facility] [address] [place] [address] Dr. Justo Yoo Serum or plasma glucose tole joann 3 hours panelOrdered By: AGATHA STAFFORD on 08-04-2021 Glucose tolerance 3 hours panel See comment [facility] Comment on above: FASTING 85 Col: 07/13 06/02 0818 1HR GLU 156 Col: 08/04/21 0949 2HR GLU 116 Col: 08/04/21 1049 3HR GLU 73 Col: 08/04/21 1158 Urine culture routineOrdered By: Uriel Kim on 07-21-2021 Bacteria identified Cx Nom (U) 2 Days [facility] Amphetamine Screen Ql (U)Ord ered By: Uriel Kim on 07-18-2021 Amphetamines Ql (U) Negative Negative [facility] Automated erythrocytes count in urine sediment (number/area)Ordered By: Uriel Kim on 07-18-2021 RBC Auto (Urine sed) [#/Area] 0-1 [HPF] 0-4 [facility] Automated leukocytes count i n urine sediment (number/area)Ordered By: Uriel Kim on 07-18-2021 WBC Auto (Urine sed) [#/Area] 10-19 [HPF] 0-4 [facility] Automated urine hyaline cast s count (number/volume)Ordered By: Uriel Kim on 07-18-2021 Hyaline casts Auto (U) [#/Vol] 0-8 [LPF] 0-1 [facility] Barbiturates [Presence] in U rineOrdered By: Uriel Kim on 07-18-2021 Barbiturates Ql (U) Negative Negative [facility] Benzodiazepines [Presence] i n UrineOrdered By: Uriel Kim on 07-18-2021 Benzodiazepines Ql (U) Negative Negative [facility] Bilirubin Test strip Ql (U)O rdered By: Uriel Kim on 07-18-2021 Bilirubin Ql (U) Negative Negative [facility] Casts typing in urine sedime nt by light microscopyOrdered By: Uriel Kim on 07-18-2021 Casts LM Nom (Urine sed) None seen [LPF] None Seen [facility] Color Auto (U)Ordered By: Rossana Kim on 07-18-2021 Color (U) Yellow Yellow [facility] Ketones Auto test strip (U) [Mass/Vol]Ordered By: Uriel Kim on 07-18-2021 Ketones (U) [Mass/Vol] Trace Negative [facility] - Drug toxicology Ordered By: Uriel Kim on 07-18-2021 Opiates Ql (U) Negative Negative [facility] Mucus LM Ql (Urine sed)Order ed By: Uriel Kim on 07-18-2021 Mucus Ql (Urine sed) 3+ [LPF] [facility] Nitrite Test strip Ql (U)Ord ered By: Uriel Kim on 07-18-2021 Nitrite Ql (U) Negative Negative [facility] No Panel InformationOrdered By: Uriel Kim on 07-18-2021 Membranes Rupture (PAMG-1) Negative Negative [facility] Phencyclidine Screen Ql (U)O rdered By: Uriel Kim on 07-18-2021 Phencyclidine Ql (U) Negative Negative [facility] Comment on above: These are unconfirme d results and should not be used for legal purposes. Drug Cut-Off Concentration: AMPH 1000 ng/mL JANINA 200 ng/mL JOHN 200 ng/mL COCM 300 ng/mL OP 300 ng/mL PCP 25 ng/mL Protein Auto test strip (U) [Mass/Vol]Ordered By: Uriel Kim on 07-18-2021 Protein (U) [Mass/Vol] Negative Negative [facility] Specific gravity Auto test s trip (U) [Rel density]Ordered By: Uriel Kim on 07-18-2021 Specific gravity (U) [Rel density] 1.026 1.001-1.030 [facility] Squamous epithelial cells de tection in urine sediment by light microscopyOrdered By: Uriel Kim on 07-18-2021 Epithelial cells.squamous LM Ql (Urine sed) 5-9 [HPF] 0-2 [facility] Urine bacteria detection by automated methodOrdered By: Uriel Kim on 07-18-2021 Bacteria Auto Ql (U) 2+ None Seen [facility] Urine clarity by refractomet ry automatedOrdered By: Uriel Kim on 07-18-2021 Clarity Refractometry automated (U) Clear Clear [facility] Urine cocaine detectionOrder ed By: Uriel Kim on 07-18-2021 Cocaine Ql (U) Negative Negative [facility] Urine glucose measurement by automated test strip (mass/volume)Ordered By: Uriel Kim on 07-18-2021 Glucose Auto test strip (U) [Mass/Vol] Normal mg/dL Normal [facility] Urine hemoglobin detection b y automated test stripOrdered By: Uriel Kim on 07-18-2021 Hemoglobin Auto test strip Ql (U) Negative Negative [facility] Urine leukocyte esterase det ection by automated test stripOrdered By: Uriel Kim on 07-18-2021 Leukocyte esterase Auto test strip Ql (U) 2+ Negative [facility] Urobilinogen Auto test strip (U) [Mass/Vol]Ordered By: Uriel Kim on 07-18-2021 Urobilinogen (U) [Mass/Vol] Normal mg/dL Normal [facility] pH Auto test strip (U)Ordere d By: Uriel Kim on 07-18-2021 pH (U) 6.5 [pH] 5.0-9.0 [facility] UA (CLEAN/CATCH) METAL MODEL BUILDER/MICRO I F IND.on 2021 Bilirubin Ql (U) Negative Normal NEGATIVE [facility] Comment on above: Performed By: #### U ACSIND #### [facility] [address] [place] [address] Dr. Justo Yoo Clarity (U) CLEAR Normal CLEAR [facility] Comment on above: Performed By: #### U ACSIND #### [facility] [address] [address] [address] Justo Yoo Color (U) YELLOW Normal YELLOW [facility] Comment on above: Performed By: #### U ACSIND #### [facility] [address] [address] [address] Justo Yoo Glucose Ql (U) Negative Normal NEGATIVE [facility] Comment on above: Performed By: #### U ACSIND #### [facility] [address] [address] [address] Justo Yoo Hemoglobin Ql (U) Negative Normal NEGATIVE [facility] Comment on above: Performed By: #### U ACSIND #### [facility] [address] [place] [address] Dr. Justo Yoo Ketones Ql (U) TRACE Abnormal NEGATIVE [facility] Comment on above: Performed By: #### U ACSIND #### [facility] [address] [place] [address] Dr. Justo Yoo LEUKOCYTES Negative Normal NEGATIVE [facility] Comment on above: Performed By: #### U ACSIND #### [facility] [address] [place] [address] Dr. Justo Yoo Nitrite Ql (U) Negative Normal NEGATIVE [facility] Comment on above: Performed By: #### U ACSIND #### [facility] [address] [place] [address] Dr. Justo Yoo pH (U) 6.5 [pH] Normal 5-9 [facility] Comment on above: Performed By: #### U ACSIND #### [facility] [address] [place] [address] Dr. Justo Yoo SPEC GRAVITY 1.025 Normal 1.005-<=1.[address] [place] [address] Comment on above: Performed By: #### U ACSIND #### [facility] [address] [place] [address] Dr. Justo Yoo UA PROTEIN TRACE Normal NEGATIVE/ TRACE [facility] Comment on above: Performed By: #### U ACSIND #### [facility] [address] [place] [address] Dr. Justo Yoo UR MICRO IND NOT INDICATED Normal [facility] Comment on above: Performed By: #### U ACSIND #### [facility] [address] [place] [address] Dr. Justo Yoo Urobilinogen Qn (U) 0.2 {Allen'U}/dL Normal 0.2 - 1. 0 [facility] Comment on above: Performed By: #### U ACSIND #### [facility] [address] [place] [address] Dr. Justo Yoo COVID Quick Testingon 2020 Result Negative [employer] Other Quick Fluon 01-14-2021 FLUAV Ab CF (S) [Titer] Negative [facility] [employer] Other FLUBV Ab CF (S) [Titer] Negative [facility] [employer] Other Vital Signs Date Time Vital Sign Value Performing Clinician Facility 01-15-2024 11:53-0500 Body mass index (BMI) [Ratio] 29.95 kg/m2 Agatha Nataprawira DO Work Phone: [facility] 01-15-2024 11:53-0500 Body weight 81.65 kg Agatha Nataprawira DO Work Phone: [facility] 01-15-2024 11:53-0500 Diastolic blood pressure 74 mm[Hg] Agatha Nataprawira DO Work Phone: [facility] 01-15-2024 11:53-0500 Systolic blood pressure 116 mm[Hg] Agatha Nataprawira DO Work Phone: [facility] 07-27-2023 12:22-0400 Body height 165.1 cm [facility] 07-27-2023 12:22-0400 Body mass index (BMI) [Ratio] 26.8 kg/m2 [facility] 07-27-2023 12:22-0400 Body temperature 98.8 [degF] [facility] 07-27-2023 12:22-0400 Body weight 73.02 kg [facility] 07-27-2023 12:22-0400 Diastolic blood pressure 63 mm[Hg] [facility] 07-27-2023 12:22-0400 Heart rate 87 /min [facility] 07-27-2023 12:22-0400 Respiratory rate 16 /min [facility] 07-27-2023 12:22-0400 SaO2% (BldA) [Mass fraction] 98 % [facility] 07-27-2023 12:22-0400 Systolic blood pressure 98 mm[Hg] [facility] 04-04-2023 10:24-0500 Heart rate 67 /min Agathanikita Farraraprawira [facility] 04-04-2023 10:24-0500 SaO2% (BldA) [Mass fraction] 100 % Agatha Nataprawira [facility] 04-04-2023 10:24-0500 Respiratory rate 20 /min Agatha Nataprawira [facility] 04-04-2023 10:23-0500 Body temperature 97.34 [degF] Agatha Nataprawira [facility] 04-04-2023 10:22-0500 Diastolic blood pressure 62 mm[Hg] Agatha Nataprawira [facility] 04-04-2023 10:22-0500 Mean blood pressure 76 mm[Hg] Agatha Nataprawira [facility] 04-04-2023 10:22-0500 Systolic blood pressure 104 mm[Hg] Agatha Nataprawira [facility] 04-04-2023 09:45-0500 Heart rate 71 /min Agatha Nataprawira [facility] 04-04-2023 09:45-0500 SaO2% (BldA) [Mass fraction] 100 % Agatha Nataprawira [facility] 04-04-2023 09:45-0500 Diastolic blood pressure 63 mm[Hg] Agatha Nataprawira [facility] 04-04-2023 09:45-0500 Mean blood pressure 77 mm[Hg] Agatha Nataprawira [facility] 04-04-2023 09:45-0500 Systolic blood pressure 104 mm[Hg] Agatha Nataprawira [facility] 04-04-2023 09:40-0500 Body temperature 97.52 [degF] Agatha Nataprawira [facility] 04-04-2023 09:40-0500 Diastolic blood pressure 66 mm[Hg] [facility] [facility] 04-04-2023 09:40-0500 Heart rate 62 /min Agatha Nataprawira [facility] 04-04-2023 09:40-0500 Mean blood pressure 81 mm[Hg] Agatha Nataprawira [facility] 04-04-2023 09:40-0500 Respiratory rate 16 /min Agatha Nataprawira [facility] 04-04-2023 09:40-0500 SaO2% (BldA) [Mass fraction] 100 % Agatha Nataprawira [facility] 04-04-2023 09:40-0500 Systolic blood pressure 111 mm[Hg] Agatha Nataprawira [facility] 04-04-2023 09:30-0500 Mean blood pressure 78 mm[Hg] Agatha Nataprawira [facility] 04-04-2023 09:30-0500 Respiratory rate 15 /min Agatha Nataprawira [facility] 04-04-2023 09:25-0500 Mean blood pressure 78 mm[Hg] Agatha Nataprawira [facility] 04-04-2023 09:25-0500 Respiratory rate 18 /min Agatha Nataprawira [facility] 04-04-2023 09:15-0500 Body temperature 96.98 [degF] Agatha Nataprawira [facility] 04-04-2023 06:43-0500 Mean blood pressure 66 mm[Hg] Agatha Nataprawira [facility] 04-04-2023 06:41-0500 Respiratory rate 16 /min Agatha Stafford [facility] 04-04-2023 06:41-0500 Body temperature 97.7 [degF] Agatha Stafford [facility] 03-28-2022 10:30-0500 Body height 165.1 cm Stacy Hayley Other [employer] Other 03-28-2022 10:30-0500 Body mass index (BMI) [Ratio] 27.45 kg/m2 Stacy Hayley Other [employer] Other 03-28-2022 10:30-0500 Body temperature 98 [degF] Stacy Hayley Other [employer] Other 03-28-2022 10:30-0500 Body weight 74.84 kg Stacy Hayley Other [employer] Other 03-28-2022 10:30-0500 Diastolic blood pressure 79 mm[Hg] Stacy Hayley Other [employer] Other 03-28-2022 10:30-0500 Respiratory rate 18 /min Stacy Hayley Other [employer] Other 03-28-2022 10:30-0500 SaO2% (BldA) [Mass fraction] 98 % Stacy Hayley Other [employer] Other 03-28-2022 10:30-0500 Systolic blood pressure 122 mm[Hg] Stacy Hayley Other [employer] Other 11-11-2021 12:45-0400 Body height 165.1 cm Stacy Hardy Other [employer] Other 11-11-2021 12:45-0400 Body mass index (BMI) [Ratio] 28.62 kg/m2 Stacy Hardy Other [employer] Other 11-11-2021 12:45-0400 Body temperature 97.5 [degF] Stacy Hardy Other [employer] Other 11-11-2021 12:45-0400 Body weight 78.02 kg Stacy Hardy Other [employer] Other 11-11-2021 12:45-0400 Respiratory rate 18 /min Stacy Hardy Other [employer] Other 11-11-2021 12:45-0400 SaO2% (BldA) [Mass fraction] 95 % Stacy Hardy Other [employer] Other 09-25-2021 07:39-0400 Body temperature 97.9 [degF] DO [employer] Work Phone: [facility] 09-25-2021 07:39-0400 Diastolic blood pressure 56 mm[Hg] DO Michael House Work Phone: [facility] 09-25-2021 07:39-0400 Heart rate 64 /min DO Michael House Work Phone: [facility] 09-25-2021 07:39-0400 Respiratory rate 16 /min DO Michael House Work Phone: [facility] 09-25-2021 07:39-0400 SaO2% (BldA) [Mass fraction] 98 % DO Michael House Work Phone: [facility] 09-25-2021 07:39-0400 Systolic blood pressure 96 mm[Hg] DO Michael House Work Phone: [facility] 09-22-2021 22:43-0400 Body height 165.1 cm DO Michael House Work Phone: [facility] 09-22-2021 22:43-0400 Body weight 89.81 kg DO Michael House Work Phone: [facility] 09-21-2021 14:19-0400 Diastolic blood pressure 70 mm[Hg] DO Michael House Work Phone: [facility] 09-21-2021 14:19-0400 Heart rate 99 /min DO Michael House Work Phone: [facility] 09-21-2021 14:19-0400 Respiratory rate 16 /min DO Michael House Work Phone: [facility] 09-21-2021 14:19-0400 Systolic blood pressure 126 mm[Hg] DO Michael House Work Phone: [facility] 09-21-2021 11:42-0400 SaO2% (BldA) [Mass fraction] 100 % DO Michael House Work Phone: [facility] 09-21-2021 11:36-0400 Body height 165.1 cm DO Michael House Work Phone: [facility] 09-21-2021 11:36-0400 Body weight 89.81 kg DO Michael House Work Phone: [facility] 09-15-2021 11:30-0400 Respiratory rate 16 /min DO Michael House Work Phone: [facility] 09-15-2021 09:49-0400 Diastolic blood pressure 58 mm[Hg] DO Imchael House Work Phone: [facility] 09-15-2021 09:49-0400 Heart rate 104 /min DO Michael House Work Phone: [facility] 09-15-2021 09:49-0400 Systolic blood pressure 102 mm[Hg] DO Michael House Work Phone: [facility] 09-15-2021 09:48-0400 Body height 165.1 cm DO Michael House Work Phone: [facility] 09-15-2021 09:48-0400 Body weight 89.35 kg DO Michael House Work Phone: [facility] 09-15-2021 09:42-0400 SaO2% (BldA) [Mass fraction] 98 % DO Michael House Work Phone: [facility] 09-14-2021 14:30-0400 Respiratory rate 16 /min DO Michael House Work Phone: [facility] 09-14-2021 13:22-0400 SaO2% (BldA) [Mass fraction] 98 % DO Michael House Work Phone: [facility] 09-14-2021 13:07-0400 Diastolic blood pressure 62 mm[Hg] DO Michael House Work Phone: [facility] 09-14-2021 13:07-0400 Heart rate 93 /min DO Michael House Work Phone: [facility] 09-14-2021 13:07-0400 Systolic blood pressure 102 mm[Hg] DO Michael House Work Phone: [facility] 09-14-2021 13:06-0400 Body temperature 97.2 [degF] DO Michael House Work Phone: [facility] 09-14-2021 12:43-0400 Body height 165.1 cm DO Michael House Work Phone: [facility] 09-14-2021 12:43-0400 Body weight 89.35 kg DO Michael House Work Phone: [facility] 07-18-2021 17:02-0400 Body height 165.1 cm DO Michael House Work Phone: [facility] 07-18-2021 17:02-0400 Body weight 85.27 kg DO [employer] Work Phone: [facility] 07-18-2021 17:00-0400 Respiratory rate 16 /min DO [employer] Work Phone: [facility] 07-18-2021 16:57-0400 SaO2% (BldA) [Mass fraction] 98 % DO [employer] Work Phone: [facility] 07-18-2021 16:51-0400 Body temperature 97 [degF] DO [employer] Work Phone: [facility] 07-18-2021 16:51-0400 Diastolic blood pressure 56 mm[Hg] DO [employer] Work Phone: [facility] 07-18-2021 16:51-0400 Heart rate 101 /min DO [employer] Work Phone: [facility] 07-18-2021 16:51-0400 Systolic blood pressure 104 mm[Hg] DO [employer] Work Phone: [facility] 01-14-2021 10:00-0500 Body temperature 98.3 [degF] Shamir Keenan Other [employer] Other 01-14-2021 10:00-0500 Respiratory rate 18 /min Shamir Keenan Other [employer] Other 01-14-2021 10:00-0500 SaO2% (BldA) [Mass fraction] 99 % Shamir Keenan Other [employer] Other Encounters Encounter Date Encounter Type Care Provider Facility Start: 01-15-2024 End: 01-15-2024 Office outpatient visit 15 minutes Agatha Stafford DO Work Phone: [facility] Comment on above: Irregular menstrual cycle (Primary Dx); Dysmenorrhea; Screening for malignant neoplasm of cervix; Pelvic pain in female Start: 12-02-2023 End: 12-02-2023 ambulatory DO MICHAEL HAYWOOD Facility:[facility] Cladela yamel Start: 07-27-2023 End: 07-27-2023 ambulatory Maria De Jesus Jaramillo [facility] Work Phone: Start: 07-27-2023 End: 07-27-2023 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 Maria De Jesus Ella Work Phone: [facility] [place] Work Phone: Start: 07-27-2023 End: 07-27-2023 ambulatory [facility] Work Phone: Start: 07-27-2023 End: 07-27-2023 Patient encounter procedure [facility] Work Phone: Start: 04-25-2023 End: 04-25-2023 ambulatory AGATHA STAFFORD Not Available Start: 04-08-2023 End: 04-08-2023 ambulatory MICHAEL HAYWOOD Facility:[facility] Cladela yamel Start: 04-04-2023 End: 04-04-2023 Admission to same day surgery center Agatha Stafford [facility] Start: 04-04-2023 End: 04-04-2023 ambulatory DO Agatha Stafford Facility[facility] Start: 03-20-2023 End: 03-20-2023 ambulatory AGATHA STAFFORD Not Available Start: 03-11-2023 End: 03-11-2023 ambulatory AGATHA STAFFORD Not Available Start: 02-14-2023 End: 02-14-2023 ambulatory AGATHA HOANGRA Not Available Start: 02-07-2023 End: 02-07-2023 ambulatory MICHAEL HAYWOOD Facility:[facility] Cladela yamel Start: 05-07-2022 End: 05-08-[address] MICHAEL HAYWOOD Facility:[facility] Start: 03-28-2022 End: 03-28-[address] ZANDRA MATHIAS [facility] [employer] Other Start: 03-28-2022 Office outpatient visit 15 minutes Stacy Hayley [facility] Start: 11-11-2021 End: 11-11-2021 ambulatory Stacy Hayley Other [facility] [employer] Other Start: 11-11-2021 Office outpatient visit 15 minutes Stacyjosias Hardy [facility] Start: 09-22-2021 End: 09-25-2021 Evaluation and management of inpatient DO Michael Haywood Work Phone: [facility] Start: 09-21-2021 End: 09-21-2021 Patient encounter procedure DO Michael Haywood Work Phone: [facility] Start: 09-15-2021 End: 09-15-2021 Patient encounter procedure DO Michael House Work Phone: [facility] Start: 09-14-2021 End: 09-14-2021 Patient encounter procedure DO Michael Yobany Work Phone: [facility] Start: 09-06-2021 End: 09-06-2021 Departed Referred DO Michael House Work Phone: [facility] Start: 08-19-2021 End: 08-20-[address] LIZZ DUNCAN . Facility:[facility] Start: 08-04-2021 End: 08-04-2021 Patient encounter procedure DO Michael Haywood Work Phone: [facility] Start: 07-18-2021 End: 07-18-2021 Patient encounter procedure DO Michael Yobany Work Phone: [facility] Start: 2021 End: 05-04-[address] MANOLO COLE . Facility: Start: 01-14-2021 End: 01-14-2021 ambulatory Shamir Keenan Other [facility] [employer] Other Start: 01-14-2021 Office outpatient visit 15 minutes Shamir Keenan [facility] Procedures Date Procedure Procedure Detail Performing Clinician Start: 04-04-2023 Hysteroscopy Agatha colvinira Start: 09-15-2021 US scan of bladder DO [facility] Work Phone: Start: 09-15-2021 Ultrasonography of b ilateral kidneys DO Michael Eddy Work Phone: SARS Antigen (LFIA) DO [facility] Work Phone: Streptococcus agalac tiae culture DO Michael Eddy Work Phone: Tonsillectomy and adenoidectomy Agatha Farraraprawira Urine culture DO Michael Benavidez se Work Phone: Urine culture DO Michael Benavidez se Work Phone: Urine culture DO Michael Benavidez se Work Phone: Plan of Treatment Date Care Activity Detail Author Start: 02-24-2024 End: 02-24-2024 Patient encounter procedure 02/24/2024 10:00 AM EST Office Visit [facility] [address] [place] [address] [address] Agatha Stfaford DO [address] [address] [facility] Start: 02-24-2024 End: 02-24-2024 Professional / ancillary services management 02/24/2024 9:00 AM EST Ancillary Procedure [facility] [address] [place] [address] [address] [facility] Start: 07-27-2023 End: 07-27-2023 [facility] Start: 09-25-2021 [facility] Work Phone: Start: 09-22-2021 End: 09-25-2021 Evaluation and management of inpatient Status post vaginal delivery [facility] Start: 09-22-2021 Delivery of Products of Conception, External Approach Delivery of Products of Conception, External Approach [facility] Start: 09-21-2021 [facility] Work Phone: Start: 09-21-2021 Hospital admission [facility] Work Phone: Start: 09-21-2021 End: 09-21-2021 Patient encounter procedure Departed Clinical [facility] Start: 09-15-2021 [facility] Work Phone: Start: 09-15-2021 US scan of bladder US bladder [facility] Start: 09-15-2021 Ultrasonography of bilateral kidneys US renal BI [facility] Start: 09-15-2021 Hospital admission [facility] Work Phone: Start: 09-15-2021 End: 09-15-2021 Patient encounter procedure Departed Clinical [facility] Start: 09-14-2021 [facility] Work Phone: Start: 09-14-2021 Hospital admission [facility] Work Phone: Start: 09-14-2021 End: 09-14-2021 Patient encounter procedure Departed Clinical [facility] Start: 07-18-2021 [facility] Work Phone: Start: 07-18-2021 Hospital admission [facility] Work Phone: Atopobium vaginae DN A [Presence] in Vaginal fluid by KADE with probe detection [facility] Bacterial vaginosis associated bacterium 2 DNA [Presence] in Vaginal fluid by KADE with probe detection [facility] Megasphaera sp type 1 DNA [Presence] in Vaginal fluid by KADE with probe detection [facility] Patient Education [facility] Work Phone: Patient referral [facility] Work Phone: THINPREP TIS PAP RFX HPV THINPRE P TIS PAP RFX HPV Pathology and Cytology Routine Screening for malignant neoplasm of cervix Ordered: 01/15/2024 [facility] Work Phone: Comment on above: Ordered: 01/15/2024 Immunizations Immunization Date Immunization Notes Care Provider Fa helen 12-19-2018 tetanus toxoid, redu sierra diphtheria toxoid, and acellular pertussis vaccine, adsorbed [facility] Payers Date Payer Category Payer Medicaid [employer] [place] [place] [id number] 2022 Unknown [id number] 2022 Medicaid [id number] 2001 Unknown [id number] 2001 Unknown [id number] [id number] 2001 Unknown [id number] [id number] 2001 Unknown [id number] [id number] 2001 Unknown [id number] [id number] 2001 Unknown [id number] [id number] 2001 Unknown [id number] [id number] 2001 Unknown [id number] [id number] 2001 Unknown [id number] [id number] 2001 Unknown [id number] [id number] 2001 Unknown [id number] [id number] 2001 Unknown [id number] [id number] 2001 Unknown [id number] [id number] 2001 Unknown [id number] [id number] 1958 Medicaid [id number] 1959 Unknown [id number] Self-pay Self Pay [id number] Unknown [id number] Social History Date Type Detail Facility Tobacco smoking stat [facility] Unknown if ever smoked [facility] Start: 2000 Sex Assigned At Female F [facility] Start: 01-15-2024 Sex Assigned At F [facility] Start: 09-23-2021 End: 07-27-2023 Tobacco smoking status NHIS Current some day smoker [facility] Tobacco Current vaping o r e-cigarette use Smokeless Tobacco Use:. Vaping [facility] Tobacco smoking status No Smokshivani g Status Entered [facility] Start: 02-14-2023 Tobacco smoking stat us NHIS Never smoked tobacco [facility] Start: 02-14-2023 Tobacco use and exposure Smokeless tobacco non-user [facility] Start: 01-15-2024 Alcoholic beverage intake Ex-drinker (finding) [facility] Start: 01-15-2024 History of Social function [facility] Start: 04-26-2023 Education 13 [facility] Start: 04-26-2023 Alcohol Comment caffeine intak e : occasional ; pop [facility] Start: 2000 Sex assigned at Not on file [facility] Start: 04-25-2022 Gender identity Identifies as female gender (finding) [facility] Goals Date Patient Goal Desired Activity /State Functional Status Date Assessment Result Facility 04-04-2023 Functional Status No [facility] 09-25-2021 Functional status Patient at Baseline [facility] Work Phone: Mental Status Date Assessment Result Facility 09-25-2021 Cognitive function Cognitive Sta tus Patient at Baseline [facility] Work Phone: Clinical Notes 01-14-2021 to 01-15-2024 Agatha Stafford, DO - 01/15/2024 11:30 AM EST Note Date & Type Note Facility 01-15-2024 History of Presen t illness Narrative Images from the original note were not included. Subjective Darshan Clinton is a 23 y.o. female HPI Chief Complaint Patient presents with sick visit Patient here today to discuss irregular periods and painful cramps. Patient states that she has been having regular periods prior to this. She states that she is having 2 periods in one month. Patient states that her bleeding has slowed down but she is still having pink spotting and cramping. Does not use anything for birthcontrol. Does not wish to discuss anything. LMP 01/02/24 Past Medical History: Diagnosis Date Adopted Chlamydia in past and PID PID (pelvic inflammatory disease) Varicella zoster had vaccine Past Surgical History: Procedure Laterality Date HYSTEROSCOPY 04/04/2023 D&C - endometrial polyp TONSILECTOMY, ADENOIDECTOMY, BILATERAL MYRINGOTOMY AND TUBES VAGINAL DELIVERY x3 2018 ; 2020 ; 09/23/2021 Family History Adopted: Yes Problem Relation Name Age of Onset Stroke Mother No Known Problems Sister No Known Problems Brother No Known Problems Son Stroke Mother's Sister Seizures Mother's Sister Thyroid disease Mother's Sister Breast cancer Maternal Grandmother Cancer Paternal Grandmother Social History Tobacco Use Smoking status: Never Smokeless tobacco: Never Vaping Use Vaping status: Every Day Substances: Nicotine Substance Use Topics Alcohol use: Not Currently Comment: caffeine intake : occasional ; pop Drug use: Never OB History Para Term AB Living 3 3 1 3 SAB IAB Ectopic Multiple Live Births 3 # Outcome Date GA Lbr Dharmesh/2nd Weight Sex Type Anes PTL Lv 3 Term 12/18/18 40w0d 4 lb 6 oz M 2 Para Vag-Spont 1 Para Vag-Spont No Known Allergies Current Outpatient Medications on File Prior to Visit Medication Sig Dispense Refill [DISCONTINUED] norgestimate-ethinyl estradiol (Sprintec 28) 0.25-35 MG-MCG tablet Take 1 tablet by mouth in the morning. 28 tablet 12 No current facility-administered medications on file prior to visit. Review of Systems Constitutional: Negative for chills and fever. Respiratory: Negative for shortness of breath. Cardiovascular: Negative for chest pain. Gastrointestinal: Negative for nausea and vomiting. Genitourinary: Negative for dysuria, pelvic pain and vaginal discharge. Neurological: Negative for dizziness and headaches. Objective BP 116/74 Wt 180 lb LMP 01/02/2024 BMI 29.95 kg/m Physical Exam Constitutional: Appearance: Normal appearance. Genitourinary: No lesions in the vagina. Right Labia: No lesions. Left Labia: No lesions. No vaginal discharge. Right Adnexa: tender. Right Adnexa: no mass present. Left Adnexa: tender. Left Adnexa: no mass present. No cervical lesion. Uterus is tender. Uterus is anteverted. Bladder is not tender. Neurological: Mental Status: She is alert. Skin: General: Skin is warm and dry. Psychiatric: Mood and Affect: Mood normal. Assessment/Plan 1. Irregular menstrual cycle (Primary) Pelvic ultrasound to be scheduled and will discuss findings on the next office visit 2. Dysmenorrhea 3. Screening for malignant neoplasm of cervix Cervical cytology performed. Patient to contact the office for results - THINPREP TIS PAP RFX HPV 4. Pelvic pain in female documented in this encounter [facility] 04-04-2023 Evaluation + Plan note Extrac fernando from: Title:Preoperative H&P: Genitourinary * Author:Agatha Moran DO. Date:04/04/23 Impression and Plan Diagnosis Irregular menstrual bleeding ([id number] N92.6, Discharge, Medical). Endometrial mass ([id number] N94.89, Discharge, Medical). Acute pelvic pain (MIC05-LF R10.2, Discharge, Medical). PCB (post coital bleeding) ([id number] N93.0, Discharge, Medical). To OR for Hysteroscopy Dilation and Curettage with Endometrial mass removal. Risks of but not limited to pain, bleeding, infection, and injury to surrounding structures (bladder, bowel, uterus, vagina, etc) discussed. Patient voiced understanding and agreed to proceed with the procedure. Informed consent signed in the office. [facility]02-22-2024 Hospital Discharge instructions Patient Education 04/04/2023 09:48:35 Post Op Patient Instructions - FT (CUSTOM) 04/04/2023 09:48:32 RADIOLOGICAL ENGINEER - Post D&C, Hysteroscopy, LEEP or Essure/Laparoscopy (CUSTOM) Instructions post D & C, hysteroscopy, LEEP or Essure/laparoscopy You can resume all normal activities within 24 hours following surgery. For 24 hours: no driving, making any important decisions, drinking alcohol and a responsible adult should stay with you today. Please refrain from intercourse, douches, and tampons for the next two weeks. You can expect some vaginal spotting, cramps, or light bleeding for a week and up to ten days aftersurgery. This is normal. If you are soaking a pad an hour or more frequently you need to call your doctor. Your first period may not be normal, but most women resume their normal cycles within a month or two. It is helpful for your doctor if you keep a written record of your bleeding following surgery. Whenabnormal bleeding persists for 2-3 cycles, please bring the record to your doctor. Return to the office for post-operative check, and to go over any biopsy results at your scheduled appointment; usually two weeks following surgery. If you are uncertain if an appointment has been made, please call the office. CALL THE DOCTOR if you have severe pain, heavy bleeding, or a temperature of 100.5 or higher. Resume your regular home medication schedule as soon as you are eating a regular diet. You can either take the prescribed medications as directed for pain, or you can take over the counter pain medication such as Motrin, as indicated on the package for pain or cramps. PLEASE CALL FOR ANY PROBLEMS Follow Up Care 03/18/2023 13:31:54 With:Agatha Stafford Address: [facility] [address] [place] [id number] [facility] (1) When: Unknown Comments:Call for any problems.Call for followup appointment [facility]02-22-2024 NotePatient: DARSHAN CLINTON Age: 22 years Sex: Female : 2000 Associated Diagnoses: None Author: Agatha Stafford DO Preoperative Information Patient is a 22-year-old -0-0-2 who initially presented to the office complaints of irregular menstrual bleeding associated with pelvic pain and postcoital bleeding. Patient currently on combination oral contraceptive pills which ineffectively controlling her irregular bleeding. Pelvic ultrasound was performed and revealed anteverted uterus measuring 86 x 36 x 48 mm with normal contour and homogeneous myometrial echotexture. Endometrium contains 12 x 7 x 12 mm focal area of increased echogenicity which suspicious for blood clots versus polyp. Endometrial thickness is 2.1 mm. Right ovary measuring 20 x 18 x 14 mm with no cyst identified. Left ovary measuring 22 x 21 x 15 mm with no cyst identified. Treatment/management options were discussed with patient. Patient voiced interest in proceeding with hysteroscopy dilatation and curettage endometrial mass. Review of Systems Constitutional: No fever, No chills. Respiratory: No shortness of breath. Cardiovascular: Chest pain. Gastrointestinal: No nausea, No vomiting, No diarrhea, No constipation. Genitourinary: No dysuria. Integumentary: No rash. Neurologic: Alert and oriented X4. Psychiatric: Negative. Health Status Allergies: Allergic Reactions (Selected) No Known Allergies Histories Family History: No family history items have been selected or recorded. Social History Social & Psychosocial Habits No Data Available . Physical Examination Vital Signs 04/04/2023 6:42 EST Heart Rate Monitored 60 bpm SpO2 100 % 04/04/2023 6:41 EST Respiratory Rate 16 br/min 04/04/2023 6:41 EST Temperature Oral 36.5 DegC Systolic Blood Pressure 99 mmHg Diastolic Blood Pressure 61 mmHg Mean Arterial Pressure, Monitered 74 mmHg General: Alert and oriented. Respiratory: Lungs are clear to auscultation. Cardiovascular: Normal rate, Regular rhythm. Gastrointestinal: Soft, Non-tender, Normal bowel sounds. Genitourinary: Deferred until in the OR. Musculoskeletal No tenderness. Integumentary: Warm, Dry. Neurologic: Oriented. Psychiatric: Cooperative. Impression and Plan Diagnosis Irregular menstrual bleeding (FTM80-RE N92.6, Discharge, Medical). Endometrial mass (XVL43-TS N94.89, Discharge, Medical). Acute pelvic pain (BFY72-MZ R10.2, Discharge, Medical). PCB (post coital bleeding) (XZF68-TL N93.0, Discharge, Medical). To OR for Hysteroscopy Dilation and Curettage with Endometrial mass removal. Risks of but not limited to pain, bleeding, infection, and injury to surrounding structures (bladder, bowel, uterus, vagina, etc) discussed. Patient voiced understanding and agreed to proceed with the procedure. Informed consent signed in the office.[facility] HospitalComment on above:Result Comment: Electronically Signed By: Agatha Stafford DO.amie\Date and Time Signed: 04/04/23 07:09 [id number] Note [id number] Health 03-28-2022 Evaluation note* Encounter Date Diagnosis Assessment Notes Treatment Notes Treatment Clinical Notes Mar, Cellulitis of left thigh (ICD-10 - L03.116) Cellulitis: adult home care material was printed Drink plenty fluids, get plenty of rest. Take the cephalexin as prescribed until gone. Apply warm compresses to the area 2-3 times a day. You may take Zyrtec or Claritin as needed for itching. Follow-up with your family physician for recheck, call today for an appointment for next week. Go to the ER for worsening symptoms or concerns [employer] Other 10-01-2022 Evaluation note* Encounter Date Diagnosis Assessment Notes Treatment Notes Treatment Clinical Notes Nov, Contact with and (suspected) exposure to other viral communicable diseases (ICD-10 - Z20.828) Nov, Viral pharyngitis (ICD-10 - J02.9) Pharyngitis/tonsil lopharyngitis: adult home care material was printed Drink plenty fluids, get plenty of rest. Take the prednisone as prescribed starting tonight. You may wish to withhold your feedings for 4 hours after your prednisone dose. Go to the ER for worsening symptoms or concerns. Follow-up with your family physician if no improvement in 2 to 3 days. 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 She is ambulating and urinating without difficulty. She has had a bowel movement since delivery. Patient reports minimal vaginal bleeding. Patient denies lightheadedness, dizziness, chest pain, shortness of breath, and calf tenderness. Baby was moved to the nursery last night with a fever. Patient denies having a fever herself. Patient comments: no pain well controlled (Patient states Motrin and Tylenol help a little but pain and cramping is still excessive. Asked at 0710.) baby status: other (Moved to nursery last night with a fever.) feeding status: exclusively bottle feeding OB - PN: Obj Exam Physical Exam Vital signs: Vital Signs - 8 hr 09/24/21 03:30 09/24/21 03:30 Temperature 97.6 F Pulse Rate 81 Respiratory Rate 16 Blood Pressure 102/66 02 Sat by Pulse Oximetry 99 Oxygen Delivery Method Room Air Room Air Constitutional Constitutional: mild distress Respiratory Exam Respiratory: Present CTA bilaterally; Absent respiratory distress Cardiovascular Exam Cardiovascular: Present RRR; Absent S3 Abdominal Exam Abdominal: Present soft and tenderness Fundus: Present firm (U- 2) Extremities Exam Extremities: Present edema and pulses intact (Posterior tibial +2/4 B/L.); Absent calf tenderness or Saman's sign Skin Exam Skin: Present dry and warm Psychiatric Exam Psychiatric: Present normal affect, normal thought process, cooperative, good insight and good judgment Comments: Appropriate mood and affect. Urinary Catheter Management Straight: Cath placed during this visit: no Urethral (Salvador): Cath placed during this visit: no OB - PN: Obj Data Labs CBC & Chem 7: 09/24/21 07:08 Labs: 09/22/21 22:00: Blood Type O Positive 09/22/21 22:00: RPR w/Rflx to Titer Non reactive Microbiology Micro Results: Microbiology 09/22/21 21:10 Urine - Clean-Voided Midstream Urine Culture - Preliminary No Growth 1 Day Assessment/Plan Assessment (1) Status post vaginal delivery: Status: Acute Plan Ms. Clinton is a 21-year-old female 1 day post vaginal delivery at 38 weeks. Plan day: 1 Vaginal delivery plan (if applicable): routine care Documented By: AGATHA STAFFORD DO 09/24/21 0713 Signed By: <Electronically signed by AGATHA STAFFORD DO> 09/24/21 1053 [facility] Work Phone: [phone]) 528-785408-13-2022 [facility]* Encounter Date Diagnosis Assessment Notes Treatment Notes Treatment Clinical Notes Jan, Contact with and (suspected) exposure to other viral communicable diseases (ICD-10 - Z20.828) Jan, Viral infection (ICD-10 - B34.9) Your rapid Covid test was negative today, however, rapid Covid tests are not 100% accurate. If symptoms worsen on Saturday, call your primary doctor for a PCR covid test order. Drink plenty of fluids and get plenty of rest. If you develop chest pain, shortness of breath, or feel like you are going to pass out, go to the ER. Jan, Other Additional time spent conducting pre-visit phone call, screening for symptoms, instructions on social distancing, application and removal of PPE, and cleaning of examination room, equipment and supplies was preformed. Patient education given for testing methodology and results. Patient care instructions given in writting by [facility] Care At Home document. [employer] Other Evaluation note* Diagnosis Onset Date Resolution Status Status post vaginal delivery acute [facility] Work Phone: Evaluation noteNo assessment information available [facility] Work Phone: Evaluation note* Diagnosis Onset Date Resolution Status Folliculitis acute High risk sexual behavior no neactive [facility] Work Phone: Evaluation note* Diagnosis Irregular menstrual cycle- Primary Dysmenorrhea Screening for malignant neoplasm of cervix Screening for malignant neoplasm of the cervix Pelvic pain in female Unspecified symptom associated with female genital organs documented in this encounter [facility] N[facility]ative - Reported* Type Description Date Surgical History tonsillectomy and adenoidectomy [facility] Other Hospital course Narrative No data available for this section 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 Patient states pain and cramping is significantly better than yesterday. She is ambulating and urinating without difficulty. She has had a bowel movement since delivery. Patient reports minimal vaginal bleeding. Patient denies lightheadedness, dizziness, chest pain, shortness of breath, and calf tenderness. Baby is doing well and is bottlefeeding at this time. Baby's fever has gone down since yesterday. Patient denies spiking fever herself. Patient comments: no complaints and pain well controlled [place] baby status: doing well [place] feeding status: exclusively bottle feeding OB - PN: Obj Exam Physical Exam Vital signs: Vital Signs - 8 hr 09/25/21 05:06 Pulse Rate 70 Respiratory Rate 18 Blood Pressure 91/59 L 02 Sat by Pulse Oximetry 97 Oxygen Delivery Method Room Air Constitutional Constitutional: no acute distress Respiratory Exam Respiratory: Present CTA bilaterally; Absent respiratory distress Cardiovascular Exam Cardiovascular: Present RRR; Absent S3 Abdominal Exam Abdominal: Present soft and normoactive bowel sounds; Absent tenderness, distended or rebound Fundus: Present firm (U- 3) Extremities Exam Extremities: Present edema and pulses intact (Posterior tibial +2/4 B/L.); Absent Saman's sign Psychiatric Exam Psychiatric: Present normal affect, normal thought process, cooperative, good insight and good judgment Comments: Appropriate mood and affect. Urinary Catheter Management Straight: Cath placed during this visit: no Urethral (Salvador): Cath placed during this visit: no OB - PN: Obj Data Labs CBC & Chem 7: 09/24/21 07:08 Labs: 09/24/21 07:08: Uncorrected WBC Count 10.7, MCV 71.7 L, MCH 22.8 L, MCHC 31.8 L,RDW 17.2 H, Plt Count 238, MPV 8.2, Neut % (Auto) 70.2, Lymph % (Auto) 21.8, [place] % (Auto) 7.0, Eos % (Auto) 0.5, Baso % (Auto) 0.5, Neut # (Auto) 7.5, Lymph# (Auto) 2.3, [place] # (Auto) 0.8, Eos # (Auto) 0.1, Baso # (Auto) 0.1, Nucleated RBC % (auto) 0.1 09/22/21 22:00: RPR w/Rflx to Titer Non reactive Microbiology Micro Results: Microbiology 09/22/21 21:10 Urine - Clean-Voided Midstream Urine Culture - Final <9,000 colonies/ml mixed bacterial skin contaminants 2 Days Assessment/Plan Assessment (1) Status post vaginal delivery: Status: Acute Plan Home instructions and follow up instructions reviewed. Plan for discharge home. Plan day: 2 Vaginal delivery plan (if applicable): routine care, discharge home and follow up 6 weeks Documented By: Isabelle Gregg DO 09/25/21 06 56 Signed By: <Electronically signed by Isabelle Gregg DO> 09/25/21 1131 [facility] Work Phone: Progress note No data available for this section [facility] Assessments No Assessments Information Available Chief Complaint and Reason for Visit Chief Complaint 28 wks preg, leaking O99.810 Z13.1 Z3A.35 Z36.8 IUP, cramping 37 weeks iup cramping , back pain 37 wks iup-cramping IUP (Intrauterine ) Reason for Visit Status post vaginal delivery Chief Complaint Rash on inner buttch zuni, ?std Chief Complaint Rash on inner buttch zuni, ?std Reason for Visit Folliculitis High risk sexual behavior Advance Directives Advance Directive Response Recorded Date/ Time Advance Directives No May 20 12:01pm Summary Purpose Family History No Family History Records Found Additional Source Comments REASON FOR VISIT (unrecogniz ed section and content) Reason Comments sick visit Patient here today t o discuss irregular periods and painful cramps. Patient states that she has been having regular periods prior to this. She states that she is having 2 periods in one month. Patient states that her bleeding has slowed down but she is still having pink spotting and cramping. Does not use anything for birthcontrol. Does not wish to discuss anything. LMP 01/02/24 Care Teams (unrecognized sec tion and content) Team Status: Inactive Member Role Status Dates Michael Haywood DO Primary Care Provider Active Nany Morton MD Admit Provider, Attending Provider Active Team Status: Inactive Member Role Status Dates Michael Haywood , Primary Care Provider Active Nany Morton MD Attending Provider Active Team Status: Inactive Member Role Status Dates Michael Haywood , DO Primary Care Provider Active Agatha Stafford , DO Attending Provider Active Team Status: Inactive Member Role Status Dates Agatha Stafford , DO Attending Provider Active PHYSICIAN NO FAMILY Primary Care Provider Active Team Status: Inactive Member Role Status Dates Michael Haywood , DO Primary Care Provider Active Uriel Kim , DO Attending Provider Active Team Status: Active Member Role Status Dates Michael Haywood , Primary Care Provider Active Team Status: Inactive Member Role Status Dates Maria De Jesus Jaramillo APRN Attending Provider Active Start: July 27, 2023 End: July 27, 2023 Michael Haywood , Primary Care Provider Active Start: July 27, 2023 End: July 27, 2023 Team Status: Inactive Member Role Status Dates Maria De Jesus Jaramillo APRN Attending Provider Active Start: July 27, 2023 End: July 27, 2023 County Bailiff Relationship Specialty Start Date End Date Michael Haywood MD [address] [place] [address] PCP - General Family Medicine 02/14/23 INFORMATION SOURCE (unrecogn ized section and content) DATE CREATED AUTHOR 05/18/2022 [facility] DATE CREATED AUTHOR AUTHOR'S ORGANIZ ATION 04/27/2023 [facility] EPIC DATE CREATED AUTHOR AUTHOR'S ORGANIZ ATION 08/01/2023 [facility] DATE CREATED AUTHOR AUTHOR'S ORGANIZ ATION 09/23/[address] [facility] DATE CREATED AUTHOR AUTHOR'S ORGANIZ ATION 12/12/2023 [facility] Goals (unrecognized section and content) Goals may be documented in a n alternate section FOR RECORDS PERTAINING TO PATIENTS WHO ARE OR HAVE BEEN ENROLLED IN A CHEMICAL DEPENDENCY/SUBSTANCEABUSE PROGRAM, SOME INFORMATION MAY BE OMITTED. This clinical summary was aggregated from multiple sources. Caution should be exercised in using it in the provision of clinical care. This summary normalizes information from multiple sources, and as a consequence, information in this document may materially change the coding, format and clinical context of patient data. In addition, data may be omitted in some cases. CLINICAL DECISIONS SHOULD BE BASED ON THE PRIMARY CLINICAL RECORDS. [facility]. provides no warranty or guarantee of the accuracy or completeness of information in this document.
--- NOTE | 2024-01-16 19:26 | US_ITS ---
The [address] [address] Patient Name: CHASE CLINTON MRN: [id number] date: 2000 Sex: F Assigned Patient Location: ER Current Patient Location: Accession/Order Number: [id number] Exam Date: 01/16/2024 19:49 Report Date: 01/16/2024 21:34 At the request of: ALLISON HART Procedure: US pelvis transvaginal US pelvis transvaginal HISTORY: Pelvic pain COMPARISONS: 08/09/2023 TECHNIQUE: Transvaginal imaging the pelvis was performed. FINDINGS: UTERUS: Normal in size and echogenicity. The uterus measures 10.0 x 4.3 x 6.0 cm. MYOMETRIUM:Unremarkable. ENDOMETRIUM: The endometrium is within normal limits. The endometrium measures6.9 mm which is within normal limits. RIGHT OVARY: Within normal limits demonstrating normal vascular flow. The right ovary measures 2.6 x 1.2 x 1.8 cm. LEFT OVARY: There is a complex dominant follicle on the left ovary measured 2.0 cm. There is normal vascular flow to the left ovary. The left ovary measures 3.1 x 3.1 x 2.9 cm. OTHER:There is no significant free fluid in the pelvis. US/US pelvis transvaginal IMPRESSION: Mildly complex dominant follicle in the left ovary measuring 2.0 cm. Unremarkable pelvic ultrasound otherwise. Electronically authenticated by: DANY GILLIAM Date: 01/16/2024 21:34
--- NOTE | 2024-01-16 19:28 | ED_ITS ---
HPI - Abdominal Pain General Chief Complaint: Abdominal Pain Stated Complaint: ABDOMINAL PAIN Time Seen by Provider: 01/16/24 19:10 Source: patient Mode of arrival: walk-in Limitations: no limitations History of Present Illness HPI narrative: Patient is a 23-year-old female who presents to the emergency department for pelvic pain and vaginal bleeding. She states she had uterine fibroid and polyp removed in August of this year. She states in the last several weeks she has had irregular vaginal bleeding and in the last 4 days has had an increase in pelvic pain. She has had no fevers, vomiting. She reports nausea. No urinary symptoms, flank or back pain. She has been using ibuprofen without improvement. She states she contacted her HYDROELECTRIC COMPONENT MACHINIST who ordered a pelvic ultrasound for her, she states it is not scheduled until February 23. Related Data Previous Rx's ?Medication ?Instructions ?Recorded cephalexin 500 mg capsule 500 mg PO Q8H 5 days #15 caps 01/16/24 hydrocodone 5 mg-acetaminophen 325 1 tab PO Q6H PRN pain 2 days #8 01/16/24 mg tablet tabs ketorolac 10 mg tablet 10 mg PO TID PRN pain #10 tabs 01/16/24 ondansetron 4 mg disintegrating 4 mg PO Q6H PRN nausea and 01/16/24 tablet vomiting #12 tabs Allergies Allergy/AdvReac Type Severity Reaction Status Date / Time No Known Drug Allergies Allergy Verified 01/16/24 19:16 Review of Systems ROS Constitutional Denies: fever or chills Ears, nose, mouth, and throat Denies: throat pain Gastrointestinal Reports: abdominal pain and nausea; Denies: vomiting or diarrhea Musculoskeletal Denies: back pain or neck pain Integumentary/Breast Denies: rash Neurological Denies: numbness in extremities or weakness in extremities Hematologic/Lymphatic Denies: easy bruising or easy bleeding PFSH PFSH Social History Smoking status: Current every day smoker Little interest or pleasure in doing things: not at all Feeling down, depressed, or hopeless: not at all Exam Narrative Exam Narrative: Gen.: Awake, alert, in no distress Head: Normocephalic, atraumatic ENT: Moist mucous membranes Respiratory: No respiratory distress Gastrointestinal: Abdomen is soft, nondistended and mildly tender to palpation in the suprapubic abdomen with no pain out of proportion on exam, no guarding or rebound Extremities: Moves extremities equally Psych: Normal mood and affect Neuro: No focal neuro deficit Skin: Warm, dry, intact Constitutional Vital Signs, click to edit/add: Last Vital Signs Temp 97.9 F 01/16/24 19:13 Pulse 85 01/16/24 19:13 Resp 18 01/16/24 19:13 BP 102/50 01/16/24 19:13 Pulse Ox 99 01/16/24 19:13 O2 Del Method Room Air 01/16/24 19:13 Course Vital Signs Vital signs: Vital Signs Temperature 97.9 F 01/16/24 19:13 Pulse Rate 85 01/16/24 19:13 Respiratory Rate 18 01/16/24 19:13 Blood Pressure 102/50 01/16/24 19:13 Pulse Oximetry 99 01/16/24 19:13 Oxygen Delivery Method Room Air 01/16/24 19:13 Temperature 97.9 F 01/16/24 19:13 Pulse Rate 85 01/16/24 19:13 Respiratory Rate 18 01/16/24 19:13 Blood Pressure 102/50 01/16/24 19:13 Pulse Oximetry 99 01/16/24 19:13 Oxygen Delivery Method Room Air 01/16/24 19:13 MDM - Abdominal Pain MDM Narrative Medical decision making narrative: Patient with stable lab studies, mild anemia that is chronic. She has a mild urinary tract infection that is contaminated, however given her pelvic pain and symptoms we will treat with antibiotics. is negative and she was given IV Zofran and Toradol in the ER. Pelvic ultrasound shows a 2 cm cyst on the left ovary that is simple and uncomplicated. No other acute process noted. The ovarian cyst may be contributing to the patient's irregular bleeding, however she was encouraged to follow-up with her HYDROELECTRIC COMPONENT MACHINIST and return to the emergency department if symptoms change or worsen. Keflex, short course of analgesics and Zofran given for home. SUPERVISED APC VISIT, PHYSICIAN ATTESTATION: Based on the medical record the care appears appropriate. ? Medical Records Attestation: I reviewed the patient's medical records. Lab Data Attestation: I reviewed the patient's lab results. Labs: Lab Results 01/16/24 01/16/24 Range/Units 19:20 19:25 WBC 8.7 (4.0-11.0) 10^3/uL RBC 4.61 (4.20-5.40) 10^6/uL Hgb 9.8 L (12.0-16.0) g/dL Hct 33.5 L (36.0-48.0) % MCV 72.7 L (81.0-99.0) fL MCH 21.3 L (26.7-34.0) pg MCHC 29.3 L (29.9-35.2) g/dL RDW 16.6 H (11.0-15.0) % Plt Count 327 (150-450) 10^3/uL MPV 9.9 (9.5-13.5) fL Neut % (Auto) 67.3 (43.0-75.0) % Lymph % (Auto) 27.1 (20.5-60.0) % [place] % (Auto) 4.6 (1.7-12.0) % Eos % (Auto) 0.6 L (0.9-7.0) % Baso % (Auto) 0.3 (0.2-2.0) % Neut # (Auto) 5.9 (1.4-6.5) 10^3/uL Lymph # (Auto) 2.4 (1.2-3.8) 10^3/uL [place] # (Auto) 0.4 (0.3-0.8) 10^3/uL Eos # (Auto) 0.1 (0.0-0.7) 10^3/uL Baso # (Auto) 0.0 (0.0-0.1) 10^3/uL Abs Immat Gran (auto) 0.01 (0.00-0.03) 10^3/uL Imm/Tot Granulo (auto) 0.1 (0.0-0.5) % Sodium 140 (136-145) mmol/L Potassium 3.9 (3.5-5.1) mmol/L Chloride 106 (98-107) mmol/L Carbon Dioxide 27.1 (21.0-32.0) mmol/L Anion Gap 10.8 BUN 11.0 (7.0-18.0) mg/dL Creatinine 0.94 (0.55-1.02) mg/dL Est GFR ( Amer) >60 (>=60 mL/min/1.73m^2) Est GFR (Non-Af Amer) >60 (>=60 mL/min/1.73m^2) BUN/Creatinine Ratio 11.7 Glucose 96 (74-106) mg/dL Calcium 8.9 (8.5-10.1) mg/dL Total Bilirubin 0.2 (0.2-1.0) mg/dL AST 12 L (15-37) U/L ALT 12 L (14-59) U/L Alkaline Phosphatase 64 (46-116) U/L Total Protein 6.6 (6.4-8.2) g/dL Albumin 3.4 (3.4-5.0) g/dL Globulin 3.2 g/dL Albumin/Globulin Ratio 1.1 Urine Color Lt. yellow (YELLOW) Urine Clarity Turbid A (CLEAR) Urine pH 8.0 (5.0-9.0) Ur Specific [place] 1.020 (1.005-1.025) Urine Protein Negative (NEG/TRACE) mg/dL Urine Glucose (UA) Negative (NEGATIVE) mg/dL Urine Ketones Negative (NEGATIVE) mg/dL Urine Occult Blood Trace-i (NEGATIVE) Urine Nitrite Negative (NEGATIVE) Urine Bilirubin Negative (NEGATIVE) Urine Urobilinogen 0.2 (0.2-1.0) EU/dL Ur Leukocyte Esterase Trace A (NEGATIVE) Urine RBC 0-2 (0-2) #/HPF Urine WBC 5-10 A (NONE SEEN) #/HPF Ur Squamous Epith Cells Many A (NONE/RARE) #/LPF Urine Crystals None seen (None Seen) #/HPF Amorphous Sediment Many Urine Bacteria Small A (NONE SEEN) #/HPF Urine Casts None seen (NONE SEEN) #/LPF Urine Mucus None seen (NONE SEEN) Ur Culture Indicated? Yes Urine HCG, Qual Negative (NEGATIVE) Imaging Data US - abdomen: Attestation: I have reviewed the pertinent imaging results. Discharge Plan Discharge Chief Complaint: Abdominal Pain Clinical Impression: Pelvic pain, UTI (urinary tract infection), Nausea Patient Disposition: Home, Self-Care Time of Disposition Decision: 20:16 Condition: Good Prescriptions / Home Meds: New hydrocodone-acetaminophen 5-325 mg tablet 1 tab PO Q6H PRN (Reason: pain) 2 Days Qty: 8 0RF Rx Instructions: DX: R10.9 ketorolac 10 mg tablet 10 mg PO TID PRN (Reason: pain) Qty: 10 0RF cephalexin 500 mg capsule 500 mg PO Q8H 5 Days Qty: 15 0RF ondansetron 4 mg tablet,disintegrating 4 mg PO Q6H PRN (Reason: nausea and vomiting) Qty: 12 0RF Print Language: Bangladeshi Instructions: Urinary Tract Infection in Women (ED), Pelvic Pain (ED) Additional Instructions: Follow up with your HYDROELECTRIC COMPONENT MACHINIST Referrals: SHAWN HAYWOOD [Primary Care Provider] - 1 week
[2024-01-16] MEDS: KETOROLAC TROMETHAMINE 30 MG/ML VIAL IVP (19:38)
[2024-01-16] MEDS: ONDANSETRON PF 4 MG/2 ML VIAL IV (19:39)
[2024-01-16 19:47] LABS: Basophils Percent Auto 0.3 % (0.2-2.0); Eosinophils Absolute Auto 0.1 10^3/uL (0.0-0.7); Eosinophils Percent Auto 0.6 % (0.9-7.0); Hematocrit 33.5 % (36.0-48.0); Hemoglobin 9.8 g/dL (12.0-16.0); Immature Granulocytes Abs Auto 0.01 10^3/uL (0.00-0.03); Immature Granulocytes Pct Auto 0.1 % (0.0-0.5); Lymphocytes Absolute Auto 2.4 10^3/uL (1.2-3.8); Lymphocytes Percent Auto 27.1 % (20.5-60.0); Mean Corpuscular HGB Conc 29.3 g/dL (29.9-35.2); Mean Corpuscular Hemoglobin 21.3 pg (26.7-34.0); Mean Corpuscular Volume 72.7 fL (81.0-99.0); Mean Platelet Volume 9.9 fL (9.5-13.5); Monocytes Absolute Auto 0.4 10^3/uL (0.3-0.8); Monocytes Percent Auto 4.6 % (1.7-12.0); Neutrophils Absolute Auto 5.9 10^3/uL (1.4-6.5); Neutrophils Percent Auto 67.3 % (43.0-75.0); Platelet Count 327 10^3/uL (150-450); Red Blood Count 4.61 10^6/uL (4.20-5.40); Red Cell Distribution Width 16.6 % (11.0-15.0); White Blood Count 8.7 10^3/uL (4.0-11.0)
[2024-01-16 19:48] LABS: Bilirubin Urine NEGATIVE (NEGATIVE); Blood Urine TRACE-I (NEGATIVE); Color Urine LT. YELLOW (YELLOW); Glucose Urine UA NEGATIVE (NEGATIVE); Ketones Urine NEGATIVE (NEGATIVE); Leukocyte Esterase Urine TRACE (NEGATIVE); Nitrite Urine NEGATIVE (NEGATIVE); Protein Urine NEGATIVE (NEG/TRACE); Urobilinogen Urine 0.2 EU/dL (0.2-1.0)
[2024-01-16 19:53] LABS: HCG Qualitative Urine* NEGATIVE (NEGATIVE); Internal Control Within Normal Limits
[2024-01-16 19:56] LABS: Clarity Urine TURBID (CLEAR); Urine Microscopic Indicated YES
[2024-01-16 20:00] LABS: Bacteria Urine SMALL #/HPF (NONE SEEN); Crystals Seen? None Seen #/HPF (None Seen); Mucus Urine NONE SEEN (NONE SEEN); RBC Urine 0-2 #/HPF (0-2); Squamous Epithelial Cell Urine MANY #/LPF (NONE/RARE)
[2024-01-16 20:01] LABS: Amorphous Sediment Urine MANY; Cast Seen? NONE SEEN #/LPF (NONE SEEN); Urine Culture Indicated YES
[2024-01-16 20:04] LABS: Alanine Aminotransferase 12 U/L (14-59); Albumin Globulin Ratio 1.1; Albumin Level 3.4 g/dL (3.4-5.0); Alkaline Phosphatase 64 U/L (46-116); Anion Gap 10.8; Aspartate Amino Transferase 12 U/L (15-37); BUN Creatinine Ratio 11.7; Bilirubin Total 0.2 mg/dL (0.2-1.0); Calcium 8.9 mg/dL (8.5-10.1); Carbon Dioxide 27.1 mmol/L (21.0-32.0); Chloride 106 mmol/L (98-107); Estimated GFR (African America >60 (>=60 mL/min/1.73m^2); Estimated GFR (Non-African Ame >60 (>=60 mL/min/1.73m^2); Globulin 3.2 g/dL; Glucose 96 mg/dL (74-106); Potassium 3.9 mmol/L (3.5-5.1); Sodium 140 mmol/L (136-145); Total Protein 6.6 g/dL (6.4-8.2)
[2024-01-16 20:40] VITALS: BP 114/70; PULSE 76; O2SAT 99
== END 2024-01-16 20:40 | disposition home or self-care (01) ==
PROVIDERS: Physician Assistant; Emergency Provider Emergency Medicine; PCP Family Medicine
DX: R10.2 Pelvic and perineal pain (principal); N39.0 Urinary tract infection, site not specified; R11.0 Nausea; F17.200 Nicotine dependence, unspecified, uncomplicated
CPT/HCPCS: 36415; 76830; 80053; 81001; 84703; 85025; 87086; 87186; 96374; 96375; 99285; J1885; J2405